=== PATIENT | female | born 1935 | race Caucasian/White ===

== ENCOUNTER 2016-12-22 03:53 | Inpatient (IN) | payer MEDICARE, OTHER ==
[~2016-12-22] VITALS: Ht 162.6 cm; Wt 59.0 kg
[~2016-12-22 03:53] MED LIST: AMLODIPINE BESY10 MG PO; ASPIRIN EC81 MG PO; CENTRUM SILVER1 EAC3 PO; COMBIVENT RESPIM4 GM INH; DOXYCYCLINE HYC50 MG PO; ELIQUIS2.5 MG PO; FLAX OIL1000 MG PO; FLUTICASONE PRO16 GM NS; HYDROCHLOROTH12.5 M1 PO; HYDROCHLOROTH12.5 MG PO; KENALOG-1010 MG/ML IA; KLOR-CON M2020 MEQ PO; LIPITOR10 MG PO; LISINOPRIL10 MG PO; LISINOPRIL20 MG PO; LOPRESSOR100 MG PO; LOVASTATIN20 MG PO; MAG-OXIDE400 MG PO; MINOXIDIL2.5 MG PO; NORVASC10 MG PO; PREDNISONE20 MG PO; TORSEMIDE10 MG PO; VENLAFAXINE H37.5 MG PO; VENLAFAXINE HCL75 M1 PO; ZESTRIL20 MG PO; ZOLPIDEM TARTRA10 MG PO
[2016-12-22] MEDS ORDERED: DIGOXIN250 MCG PO (04:12)
[2016-12-22] MEDS ORDERED: LISINOPRIL10 MG PO (04:14)
[2016-12-22] MEDS ORDERED: METOPROLOL TART50 MG PO (04:17)
[2016-12-22] MEDS ORDERED: MINOXIDIL2.5 MG PO (04:19)
--- NOTE | 2016-12-22 06:41 | NUR ---
PT ARRIVED TO FLOOR VIA STRETCHER, WAS ABLE TO AMBULATE TO SCALE FOR WEIGHT AND THEN TO BED. ALERT/ORIENTED. REPORTS 7/10 HEADACHE PAIN WHICH SHE STATES IS TOLERABLE AT THIS TIME. LUNGS ARE DIMINISHED IN BASES, 4L VIA NC IN PLACE, PULSE OX PLACED. HR IRREGULAR, TELE #4. BOWEL TONES ACTIVE, NO NAUSEA. SKIN INTACT, NO EDEMA PRESENT. IV SL, PATENT. PT UP TO BSC, VOIDED AND THEN RETURNED TO BED. DR. WEIR IN TO SEE PT AT THIS TIME. WILL CONTINUE TO MONITOR.
--- NOTE | 2016-12-22 07:18 | NUR ---
BEDSIDE REPORT RECEIVED FROM BAMBI QUEZADA. PT SLEEPING, SPO2 95%, HR 104. WILL CONTINUE TO MONITOR.
--- NOTE | 2016-12-22 08:20 | NUR ---
CHECKED ON PT. ORDERED PT BREAKFAST, BROUGHT PT ENSURE DRINK. BAMBI ASH ADMINISTERED PRN MORPHINE IV FOR 5/10 PAIN, HEADACHE REPORTED BY PT. PT HAS CALL LIGHT IN REACH.
--- NOTE | 2016-12-22 09:10 | NUR ---
PT ASSESSMENT COMPLETE. PT LUNGS CLEAR THROUGHOUT ALL LOBES. NO EDEMA NOTED. PT SPO2 98% AT THIS TIME ON 4L O2 BY NC. PT WAS ASSISTED TO COMMODE TO VOID, SPO2 FELL TO 90%, PT STATED SHE WAS SOB ON EXERTION. PT VOIDING WELL, HAD BM THIS MORNING. HR IRREGULAR IN THE 90S. PT LYING IN BED AWAKE, CALL LIGHT IN REACH. WILL CONTINUE TO MONITOR.
[2016-12-22] MEDS ORDERED: VENLAFAXINE HC150 MG PO (09:25)
--- NOTE | 2016-12-22 10:54 | NUR ---
CHECKED ON PT, PT SLEEPING SPO2 98%. HR 88. WILL CONTINUE TO MONITOR.
--- NOTE | 2016-12-22 12:02 | NUR ---
CHECKED ON PT. PT SLEEPING SPO2 95%, HR IN THE HIGH 80S, LOW 90S, IRREGULAR ON MONITOR.
--- NOTE | 2016-12-22 12:35 | NUR ---
PT STATES PAIN IS 7/10, HEADACHE. ADMINISTERED 2MG MORPHINE SULFATE IV. PT SON IN ROOM, BROUGHT SON COFFEE. PT STATES SHE DOES NOT HAVE AN APPETITE, OFFERED ENSURE DRINK, PT REFUSED. PT SANDWICH PLACED IN FRIDGE FOR LATER. CALL LIGHT W PT. PT CONTINUES TO BE ON 4L NC, SATURATING AT 96%.
--- NOTE | 2016-12-22 14:14 | NUR ---
PT AWAKE IN BED, ON 4L O2 BY NC. PT DENIES NAUSEA AT THIS TIME. PT STATES SHE IS HAVING NO PAIN AT THIS TIME. PT SON AUBREE AT BEDSIDE. BROUGHT PT SOME CRACKERS TO SNACK ON, STATES SHE HAS NO APPETITE, HAS ENSURE DRINK AT BEDSIDE. CALL LIGHT IN REACH.
--- NOTE | 2016-12-22 15:17 | NUR ---
PT AFTERNOON ASSESSMENT COMPLETE. PT'S LUNGS CLEAR THROUGHOUT ALL LOBES. PT STATES SHE HAS STILL BEEN SOB WITH EXACERBATION, WALKING TO COMMODE. PT SATURATING AT 96% ON 4L NC. PT BOWEL TONES ACTIVE X 4, PT DENIES NAUSEA. PT STATES PAIN IS 0/10 AT THIS ITME. CALL LIGHT IN REACH. PT SON IN ROOM, WILL CONTINUE TO MONITOR.
--- NOTE | 2016-12-22 15:30 | NUR ---
PT'S DAUGHTER IN LAW BROUGHT IN PT'S MINOXIDIL. PHARMACY PHONED, PICKED UP PRESCRIPTION TO VERIFY.
--- NOTE | 2016-12-22 16:02 | EKG ---
[facility] [address] [place] [address] Signed Atrial fibrillation with rapid ventricular response Rightward axis ST \T\ T wave abnormality, consider inferolateral ischemia Abnormal ECG When compared with ECG of 01-JAN-2016 09:42, ST now depressed in Inferior leads ST now depressed in Lateral leads T wave inversion more evident in Inferior leads Nonspecific T wave abnormality no longer evident in Lateral leads Confirmed by GHADA WEIR MD ([id number]) on 12/22/2016 4:02:30 PM Electronically Signed By: GHADA WEIR MD 12/22/16 1602 PATIENT NAME: TOD COWART Electrocardiogram DATE OF : 39 PHYSICIAN: GHADA WEIR MD REPORT #: [id number] REPORT IS CONFIDENTIAL AND NOT TO BE RELEASED WITHOUT AUTHORIZATION
--- NOTE | 2016-12-22 17:40 | NUR ---
CHECKED ON PT. PT AWAKE, ALERT LYING IN BED. SPO2 96% ON 4L NC. FAMILY IN ROOM. PT DENIES PAIN AT THIS TIME. PT HAS NO REQUESTS. CHOCOLATE ENSURE ON TABLE FOR DINNER. PT GIVEN CALL LIGHT. NO ADDITIONAL REQUESTS AT THIS TIME. OFFERED FAMILY COFFEE, DRINKS.
--- NOTE | 2016-12-22 18:43 | NUR ---
PT RECEIVED MORPINE IV X 2 THIS SHIFT FOR 07/06 AND 09/05 REPORTED PAIN, HEADACHE. PT HAS BEEN DROWSY THROUGHOUT SHIFT, NAPPING OFF AND ON. PT ON 4L O2 BY NC, SATURATING 94-97% THROUGHOUT SHIFT, ON CONINUOUS PULSE OX. PT AMBULATES TO THE COMMODE WITH SBA, FAMILY IN ROOM ASSISTING THROUGHOUT DAY, PT REPORTS SOB WITH EXERTION/AMBULATION. PT HAS HAD POOR APPETITE, DRINKING ENSURE THROUGHOUT DAY.
--- NOTE | 2016-12-22 19:20 | NUR ---
SHIFT REPORT RECIEVED. PATIENT RESTING IN BED. EATING SOME FRUIT. DENIES NAUSEA. FAMILY IN ROOM. NO NEEDS AT THIS TIME. CALL LIGHT IN REACH.
--- NOTE | 2016-12-22 20:55 | NUR ---
EVEING MEDS GIVEN PER ORDER. PATIENT ASSESSMENT COMPLETE. PATIENT RESTING IN BED. FAMILY HAS GONE HOME. PATIENT AAOX3. DENIES PAIN AND NAUSEA. BREATHING IS NONLABORED BUT SHALLOW. PULSE OX, O2 94% ON 3L NC. LUNG SOUNDS ARE CLEAR IN UPPER LOBES BILATERALLY, DIMINISHED AND COARSE IN LOWER LOBES BILATERALLY. ABD IS SOFT AND NONTENDER, BOWEL SOUNDS ACTIVE. CMS INTACT. PATIENT IS ON TELE, WHICH SHOWS AN IRREGULAR RHYTHM IN THE 70'S. PATIENT GOT UP WITH SBA TO THE C. PATIENT TOLERATED ACTIVITY, BUT BECAME SOB UPPON TRANSFERING BACK TO THE BED. PATIENT DENIES ANY FURTHER NEEDS. CALL LIGHT IN REACH.
--- NOTE | 2016-12-22 21:25 | NUR ---
NOTIFIED DR. WEIR THAT 1 TAB OF LISINOPRIL WAS FOUND IN PATIENT'S BED, PRESUMABLY FROM THIS MORNING. IRIS WAS COMPLETED FOR THE MISSED MEDICATION. NO NEW ORDERS OBTAINED AT THIS TIME.
--- NOTE | 2016-12-22 23:05 | NUR ---
PATIENT RESTING. EYES CLOSED. PULSE OX, O2 92% ON 3L NC. TELE, HR 70.
--- NOTE | 2016-12-23 00:30 | NUR ---
PATIENT HAVING COUGHING EPISODES. REQUESTED A BREATHING TREATMENT, NONE ARE ORDERED. PRN MORPHINE GIVEN FOR SOB. PATIENT UP TO THE BSC AND BACK INTO BED. TITRATED O2 UP TO 4L TO MAINTAIN O2 >88%. AFTER PATIENT RESTED IN BED FOR 5MIN WITHOUT COUGHING HER O2 WAS 96% ON THE 4L NC. TITRATED BACK DOWN TO 3L NC. 5MINS LATER O2 IS 92%. WILL CONTINUE TO MONITOR.
--- NOTE | 2016-12-23 02:23 | NUR ---
COMMUNITY ADMINISTRATOR COLLECTED VS, WNL. NO NEEDS AT THIS TIME. CALL LIGHT IN REACH.
--- NOTE | 2016-12-23 03:24 | NUR ---
PATIENT RESTING IN BED. STATES HER COUGH AND EASE OF BREATHING HAS IMPORVED. PULSE OX, O2 WAS 99% ON 3L NC. TITRATED TO 2L NC. WILL CONTINUE TO MONITOR.
--- NOTE | 2016-12-23 06:02 | NUR ---
PATIENT RESTED WELL THROUGHOUT THE NIGHT. AROUND MIDNIGHT THE PATIENT HAD SOME COUGHING EPISODES THAT LEFT HER SOB. PRN MORPHINE PROVIDED RELIEF AND PATIENT WAS ABLE TO REST. TITRATED O2 DOWN TO 2L NC. PULSE OX O2 90-95%. PATIENT O2 DROPS TO LOW 80'S WITH ANY ACTIVITY. PATIENT USED BSC DUE TO ACTIVITY INTOLERANCE. PATIENT HAS NOT REPORTED PAIN OR NAUSEA.
--- NOTE | 2016-12-23 06:20 | NUR ---
PATIENT UP PERFORMING AM CARE. EULOGIO WINKLER ASSISTING.
--- NOTE | 2016-12-23 07:25 | NUR ---
BEDSIDE REPORT RECEIVED FROM BAMBI ARCHULETA. PT AWAKE IN BED, FAMILY AT BEDSIDE. PT 94% ON 2L NC. PT REQUESTED DECAF COFFEE, GAVE MENU TO ORDER BREAKFAST, PT STATES SHE IS HUNGRY. BROUGHT FAMILY COFFEE AND WATER. PT HAS CALL LIGHT IN REACH. WILL CONTINUE TO MONITOR.
--- NOTE | 2016-12-23 09:30 | NUR ---
PT MORNING ASSESSMENT COMPLETE. PT RECEIVED PRN NEBULIZER TREATMENT FROM RT KB. PT STATES SHE FEELS BETTER AFTER TREATMENT, SPO2 92% ON 2L NC. PT HAS SUCTION AT BEDSIDE, STATING COUGHING UP BROWN SPUTUM. WHEEZES NOTED THROUGHOUT ALL LUNG LOBES, IMPROVEMENT NOTED AFTER PRN BREATHING TREATMENT. PT CONTINUES TO BE TACHYPNIC, AT RR 28. PT SOB WITH SWALLOWING PILLS, SAT 88%. NO EDEMA NOTED. CSM INTACT. PT REQUESTED SHERBERT ICE CREAM. WAS ABLE TO EAT 50% OF BREAKFAST. PT SON IN ROOM. CALL LIGHT IN REACH.
--- NOTE | 2016-12-23 09:38 | NUR ---
MINOXIDIL DOSAGE VERIFIED WITH PATIENT PCP DR. MATA. PATIENT DOSAGE HAD BEEN INCREASED TO 2.5 MG PO TO CONTROL BP. DR. WEIR PROVIDED VERBAL ORDER TO INCREASE MEDICATION, UPDATED PHARMACY AND SPOKE WITH PHARMACIST [place]. CHART NOTES FAXED OVER FROM [facility], IN CHART.
--- NOTE | 2016-12-23 10:40 | NUR ---
PHYSICAL THERAPY IN TO SEE PT. PT ABLE TO AMBULATED ONE SIDE OF MS HALLWAY, COMPLAINED OF LEG DISCOMFORT WITH AMBULATION, PT DENIES SOB. PT BACK TO ROOM WORKING WITH DIVYA, 93% ON 2L NC. PT HAS CALL LIGHT. BROUGHT FRESH ICE WATER.
--- NOTE | 2016-12-23 12:40 | NUR ---
PATIENT CALLED REQUESTING MORPHINE, ADMINISTERED 2MG IV. RATES PAIN 6/10 ON PAIN SCALE. PATIENT UP TO BATHROOM FIRST, VOIDED 300 ML OF URINE. ATE WELL AT LUNCH, STATED " I THOUHGT THE SOUP WAS TOO SALTY FOR ME". NOW BACK IN BED. NOTED SOME SOB WITH EXERTION SATURATION WITH ACTIVITY 88% 2L NC.
--- NOTE | 2016-12-23 12:50 | NUR ---
CHECKED ON PT. BAMBI WINKLER ADMINISTERED PRN MORPHINE, PT CONTINUES TO COMPLAIN OF HEADACHE PAIN. ADMINISTERED SCHEDULED LASIX. PT HAS NO ADDITIONAL REQUESTS. CALL LIGHT IN REACH. SPO2 93% ON 2L NC.
--- NOTE | 2016-12-23 14:58 | NUR ---
PT AFTERNOON ASSESSMENT COMPLETE. LUNGS CLEAR THROUGHOUT, FINE CRACKLES NOTED IN RLQ. NO EDEMA NOTED. CSM INTACT UPPER AND LOWER. RIGHT EYE RED REMAINS RED DUE TO BROKEN BLOOD VESSELS FROM COUGHING. PT O2 TITRATED TO 1L, PT SATURATING AT 95% ON 1L. PT USED INCENTIVE SPIROMETER X 10 WITH 1000 ML BEST EFFORT. PT ORDERED DINNER AND BREAKFAST FOR TOMORROW. PT HAS NO ADDITIONAL REQUESTS. WILL CONTINUE TO MONITOR. CALL LIGHT IN REACH.
--- NOTE | 2016-12-23 16:49 | NUR ---
PT UP TO CHAIR, LEGS ELEVATED. SPO2 95% ON 1L BY NC. PT REPORTS 7/10 HEADACHE. ADMINISTERED 2MG MORPHINE IV PRN. PT HAS PERSONAL ITEMS IN REACH, SUCTION AND CALL LIGHT NEXT TO PT. PT HAS NOT BEEN COUGHING THIS AFTERNOON. WILL CONTINUE TO MONITOR.
--- NOTE | 2016-12-23 18:20 | NUR ---
PT TITRATED TO 1L O2 BY ME TODAY, BY ME TODAY, TOLERATED WELL SATURATING AT 95-96% THROUGHOUT SHIFT. PT WALKED WITH PHYSICAL THERAPY, DENIED SOB. PT CONTINUES TO COMPLAIN OF SINUS PRESSURE/HEADACHE THROUGHOUT SHIFT, ADMINISTERED IV MORPHINE PRN X 2 THIS SHIFT. PT WAS UP TO CHAIR FOR DINNER, SPENT MOST OF DAY IN BED RESTING. PT CONTINUES TO HAVE DECREASED APPETITE, EATING 50% OF BREAKFAST, LUNCH, AND MIN. AMT OF DINNER.
--- NOTE | 2016-12-23 19:25 | NUR ---
REPORT RECVD FROM HELEN LACY. IN TO SEE PT PT AWAKE, FAMILY AT BEDSIDE. PULSE OX IN PLACE, PT CURRENTLY ON O2 @ 1L. PT CURRENTLY ON TELE #4. PT'S DAUGHTER ASKING WHEN DR. ZUNIGA WILL BE IN TO SEE PT IN THE AM, DAUGHTER WOULD LIKE TO BE PRESENT. ADVISED DAUGHTER THAT DR. ZUNIGA WILL BE IN TO SEE PT IN THE AM AND ADVISED PT TO BE HERE AROUND 7 AM THOUGH A SPECIFIC TIME CAN NOT BE GIVEN. NO FURTHER NEEDS AT THIS TIME. CALL LIGHT IN REACH.
--- NOTE | 2016-12-23 23:30 | NUR ---
IN TO CHECK ON PT, PULSE OX INDICATING LOW O2 SAT PER MASS COMMUNICATIONS INSTRUCTOR. O2 CURRENTLY AT 88%, NC OUT OF NOSE. PT REQUEST TO WEAR MASK THE NC CAUSES HER TO ITCH HER NOSE DISLODGING HER O2. MASK PLACED, O2 INCREASED TO 2L. NO FURTHER NEEDS AT THIS TIME. CALL LIGHT IN REACH.
--- NOTE | 2016-12-24 01:15 | NUR ---
IN TO CHECK ON PT, PT APPEARS TO BE SLEEPING. RR EVEN AND UNLABORED. O2 MASK IN PLACE, PULSE OX IN PLACE. O2 95% ON 2L. NO APPARENT DISTRESS NOTED. CALL LIGHT IN PLACE.
--- NOTE | 2016-12-24 03:25 | NUR ---
IN TO CHECK ON PT, PT AWAKE. O2 OFF. PER PULSE OX O2 @ 88% ON RA. MASK APPLIED PER PT REQUEST. NO FURTHER NEEDS AT THIS TIME. CALL LIGHT IN REACH.
--- NOTE | 2016-12-24 03:43 | NUR ---
PATIENT CALLED TO USE THE BATHROOM. ASSISTED TO THE BEDSIDE COMMODE. PATIENT IS NACK TO BED. CALL LIGHT IS WITHIN REACH.
--- NOTE | 2016-12-24 05:49 | NUR ---
PT HAS HAD UNEVENTFUL SHIFT, RESTED WELL. PT SATURATING WELL, 93-95% ON 1L. DENIES SOB OR PAIN. UP WITH MINIMAL ASSIST TO BATHROOM. PT ON CARDIAC DIET, DECREASED APPETITE. TELE DC'D DURING SHIFT.
--- NOTE | 2016-12-24 07:35 | NUR ---
REPORT RECEIVED FROM BAMBI CHAU. PT ASLEEP WITH OXY MASK AND PULSE OX ON.
--- NOTE | 2016-12-24 09:47 | NUR ---
PT IS SITTING UP IN BED FINISHING UP HER ENSURE. PT ASKED IF SHE COULD GO FOR A WALK, WILL CHECK WITH NURSE.
--- NOTE | 2016-12-24 09:57 | NUR ---
PT STATES SHE HAS A SINUS HEADACHE AND TYLENOL HAS NOT WORKED IN THE PAST. ADMINISTERED THE TYLENOL AND PSEUDOPHED. DAUGHTER IN ROOM. THEY WANT TO TRY WALKING IN A BIT. CHILD AND FAMILY COUNSELOR OBTAINING WALKER FOR FAMILY DAUGHTER STATES SHE WOULD FEEL MORE COMFORTABLE WITH IT.
--- NOTE | 2016-12-24 11:48 | NUR ---
PT UP WALKING WITH PHYS. THER. DAUGHTER WITH HER. APPEARS TO BE TOLERATING WELL.
--- NOTE | 2016-12-24 13:27 | NUR ---
ADMINISTERED TYLENOL FOR 7\10 HEADACHE AND LASIX. PT STATES AT HOME SHE JUST SUFFERS BECAUSE NOTHING WORKS. DENIES FURTHER CONCERNS.
--- NOTE | 2016-12-24 16:51 | NUR ---
TALKED TO DAUGHTER IN LAW IN [place] REGARDING HER CONCERNS. SHE SUSPECTS THE PT IS SLIGHTLY DEPRESSED. LOST HER A FEW YEARS AGO AND HAS NOT DEALT WITH IT WELL. SLEEPS MORE THAN SHE SHOULD. WILL PASS ON TO DR ZUNIGA. PT HAD BM AND AMBULATED TO RESTROOM WO DIFF. . WILL WALK AFTER DINNER.
--- NOTE | 2016-12-24 18:04 | NUR ---
PT RESTED MOST OF DAY. WALKED WITH PHYS. THER. X2. TOLERATED WELL ALTHOUGH SOB. GIVEN TYLENOL AND SUDAFED FOR SINUS CONGESTION AND PAIN. DAILY WEIGHT. SBA. 1LNC AT REST.
--- NOTE | 2016-12-24 19:20 | NUR ---
REPORT RCVD FROM FRANCIS LACY. PT IN BED VISITING WITH FAMILY. PT DENIES PAIN AT THIS TIME. NO FURTHER NEEDS AT THIS TIME. CALL LIGHT IN REACH.
--- NOTE | 2016-12-24 20:45 | NUR ---
IN TO SEE PT, PT RESTING IN BED. AWAKEN EASILY TO VOICE. PM MEDICATIONS GIVEN. DENIES PAIN OR SOB. PT ASSIST UP TO BATHROOM WITH STANDBY ASSIST AND FWW, TOLERATED WELL. PT ASSISTED BACK TO BED. O2 @ 1L PER NC IN PLACE. CONTINOUS PULSE OX ON. NO FURTHER NEEDS AT THIS TIME, CALL LIGHT IN PLACE.
--- NOTE | 2016-12-24 22:15 | NUR ---
IN TO CHECK ON PT, PT APPEARS TO BE SLEEPING. O2 VIA NC AND PULSE OX IN PLACE. RR EVEN AND UNLABORED. NO APPARENT DISTRESS NOTED. CALL LIGHT IN REACH.
--- NOTE | 2016-12-25 00:06 | NUR ---
PATIENT CALLED TO USE THE BATHROOM. PATIENT IS BACK IN BED. CALL LIGHT IS WITHIN REACH.
--- NOTE | 2016-12-25 02:15 | NUR ---
PT CALLED, UP TO BATHROOM WITH STANBY ASSIST. PT ASSISTED BACK TO BED. PT REQUESTING "SOMETHING FOR SLEEP." PT ADVISED THAT NO MEDICATIONS HAVE BEEN ORDERED FOR SLEEP AND THAT IT TOO LATE TO ADMISISTER MEDICATION AT THIS TIME. ADVISED THAT IF SLEEP AID WOULD BE GIVEN AT THIS TIME IT MAY CAUSE PT TO BE DROWSY OR SLEEP DURING THE DAY. PT STATES "OH WELL, I WILL TRY TO GO BACK TO SLEEP." NO FURTHER NEEDS AT THIS TIME. CALL LIGHT IN REACH.
--- NOTE | 2016-12-25 04:30 | NUR ---
IN TO CHECK ON PT, PT APPEARS TO BE SLEEPING. RR EVEN AND UNLABORED. O2 AND PULSE OX IN PLACE. NO APPARENT DISTRESS NOTED. CALL LIGHT IN REACH.
--- NOTE | 2016-12-25 06:01 | NUR ---
PT CALL, ASSISTED UP TO BATHROOM. STANDBY ASSIST WITH FWW. PT TOLERATED WELL. ASSISTED BACK TO BED. PT STATES "I DIDN'T SLEEP AT ALL LAST NIGHT, MAYBE 2 HOURS." PT STATES SHE IS GOING TO TRY TO GO BACK TO SLEEP. NO FURTHER NEEDS AT THIS TIME. CALL LIGHT IN REACH.
--- NOTE | 2016-12-25 06:04 | NUR ---
PT HAS HAD UNEVENTFUL SHIFT. PT STATES SHE DID NOT SLEEP WELL. O2 @ 1L, PULSE OX IN PLACE. PT UP STANDBY ASSIST WITH FWW. VOIDING QS. IV SL, FLUSHES WELL. NO C/O PAIN DURING SHIFT.
--- NOTE | 2016-12-25 07:25 | NUR ---
REPORT RECIEVED FROM BAMBI CHAU. PT STATES SHE DID NOT SLEEP MUCH THROUGH OUT SHIFT. APPEARS TO BE RESTING WITH EYES CLOSED.
--- NOTE | 2016-12-25 08:14 | NUR ---
PATIENT WAS LAYING IN BED, WE TALKED ABOUT HER EATING BREAKFAST AND THEN WE WILL GET HER IN THE SHOWER TODAY AND ALSO WALK 4 TIMES TODAY!
--- NOTE | 2016-12-25 09:55 | NUR ---
PT SHOWERED AND WALKED IN HALLWAY. TWO LAPS AROUND THE UNIT. TOLERATED WELL. TIRED BUT BASELINE TIRED FOR HER. TIPSY BUT FWW WAS A HINDERANCE WILL SEE ABOUT A CANE FOR BALANCE. PT TALKED ABOUT AND FAMILY AND SEEMS DEPRESSED.
--- NOTE | 2016-12-25 11:42 | NUR ---
PT SITTING UP IN CHAIR TRYING TO EAT LUNCH. STATES THE DRAINAGE FROM HER SINUS' IS MAKING HER NAUSEOUS. TOOK AB AND ABLE TO EAT A COUPLE BITES OF SALAD.
--- NOTE | 2016-12-25 17:25 | NUR ---
PT WALKED IN [place] SEVERAL TIMES. STATES SHE IS TIRED. SHOWERED. WORKED WITH PHYS. THER. SLIGHTLY UNSTEADY WHEN AMBULATING.
--- NOTE | 2016-12-25 19:10 | NUR ---
REPORT RECVD FROM FRANCIS LACY. IN TO SEE PT, PT LAYING IN BED RESTING. O2 @ 1L, PULSE OX IN PLACE. PT SL. NO FURTHER NEEDS AT THIS TIME. CALL LIGHT IN REACH.
--- NOTE | 2016-12-25 20:15 | NUR ---
IN TO SEE PT, PT IN BED WATCHING TV. ASSESSMENT COMPLETE AND PM MEDICATIONS GIVEN. PT STATES "I AM HOPING TO SLEEP BETTER TONIGHT." O2 @ 1L PER NC, PULSE OX IN PLACE. SL, FLUSHES WELL. EXPIRATORY WHEEZES HEARD THROUGH OUT LUNGS. NO FURTHER NEEDS AT THIS TIME. CALL LIGHT IN REACH.
--- NOTE | 2016-12-25 23:20 | NUR ---
IN TO CHECK ON PT, PT APPEARS TO BE SLEEPING. RR EVEN AND UNLABORED.O2 AND PULSE OX IN PLACE. NO APPARENT DISTRESS NOTED. CALL LIGHT IN REACH.
--- NOTE | 2016-12-26 00:50 | NUR ---
IN TO CHECK ON PT, PT APPEARS TO BE SLEEPING, RR EVEN AND UNLABORED. O2 PER NC IN PLACE AND PULSE OX. NO APPARENT DISTRESS NOTED. CALL LIGHT IN REACH.
--- NOTE | 2016-12-26 01:24 | NUR ---
PULSE OX ALARM, IN TO CHECK ON PT. PT AWAKE SITTING AT BEDSIDE, SHE STATES " I AM LOOKING FOR THAT THING TO PUT ON MY SKIN TO MAKE IT FEEL BETTER." WHEN ASKED IF IT WAS A CREAM, PT STATES "NO IT IS A MACHINE." PT APPEARS TO BE CONFUSED, REORIENTED QUICKLY. PT UP TO BATHROOM WITH STANDBY ASSIST AND CANE. LIQUID BM NOTED. PT BACK TO BED, FRESH ICE WATER GIVEN. NO FURTHER NEEDS AT THIS TIME. CALL LIGHT IN REACH.
--- NOTE | 2016-12-26 04:07 | NUR ---
IN TO CHECK ON PT, PT APPEARS TO BE SLEEPING. RR EVEN AND UNLABORED. O2 VIA MASK AND PULSE OX IN PLACE. O2 92%. NO APPARENT DISTRESS NOTED. CALL LIGHT IN REACH.
--- NOTE | 2016-12-26 05:15 | NUR ---
PT HAS RESTED INTERMITTENTLY DURING SHIFT. UP TO BATHROOM WITH STANDBY ASSIST AND CANE. PT SL. LIQUID BM NOTED DURING SHIFT. O2 @ 1L IN PLACE WITH PULSE OX. POSSIBLE D/C TODAY.
--- NOTE | 2016-12-26 08:00 | NUR ---
PATIENT IS REFUSING A SHOWER FOR TODAY. PATIENT'S NURSE, JESSE, WAS NOTIFIED.
--- NOTE | 2016-12-26 08:20 | NUR ---
PT SITTING UP IN BED EATING BREAKFAST NOW. TOOK SCHEDULED MEDS ORDERED. SWITCHED FROM OXYMASK TO NC ON 1L. O2 SATS 94% NOW. NO COMPLAINTS THIS MORNING. BP SLIGHTLY ELEVATED. WILL MONITOR. WEIGHT 130# THIS MORNING.
[2016-12-26] MEDS ORDERED: AUGMENTIN 500-1 EACH PO (11:58)
[2016-12-26] MEDS ORDERED: TORSEMIDE20 MG PO (11:59)
[2016-12-26] MEDS ORDERED: FLUTICASONE PRO16 GM NAS (12:00)
--- NOTE | 2016-12-26 12:30 | NUR ---
PT SLIGHTLY NAUSEATED. APPETITE POOR. DISCHARGE ORDER IN. AUGMENTIN AND DEMADEX GIVEN TO PATIENT. WILL REMOVE IV AND PROVIDE PAPERWORK TO PATIENT AFTER RESP THERAPIST QUALIFIES PATIENT FOR HOME O2.
--- NOTE | 2016-12-26 14:02 | NUR ---
FAXED CHART NOTES, INCLUDING FACESHEET, ORDER, RT HOME O2 QUALIFIER, H AND P, DC SUMMARY TO IN HOME MED DISCUSSED WITH PT EARLIER TODAY. CALLED IN HOME MED AND SPOKE WITH SEGUNDO, SHE STATED TO LET HER KNOW WHEN THE PT DC'D.
== END 2016-12-26 14:10 | disposition home or self-care (01) | DRG 291 ==
LOC: ED 03:53 → MS 05:44
PROVIDERS: ADMIT Internal Medicine
DX: I11.0 Hypertensive heart disease with heart failure (principal); J18.1 Lobar pneumonia, unspecified organism; J96.01 Acute respiratory failure with hypoxia; I50.33 Acute on chronic diastolic (congestive) heart failure; I89.0 Lymphedema, not elsewhere classified; I48.2 Chronic atrial fibrillation; J44.9 Chronic obstructive pulmonary disease, unspecified; J01.41 Acute recurrent pansinusitis; F39 Unspecified mood [affective] disorder; G47.33 Obstructive sleep apnea (adult) (pediatric); Z79.899 Other long term (current) drug therapy; Z87.891 Personal history of nicotine dependence; Z79.01 Long term (current) use of anticoagulants
CPT/HCPCS: 36415; 71010; 71260; 80048; 80053; 80162; 83880; 84484; 85025; 93005; 93010; 94640; 94762; 97110; 97116; 97162; 99406; J1160; J2270; Q9967

== ENCOUNTER 2017-01-17 08:49 | Emergency (ER) | payer MEDICARE, OTHER ==
[~2017-01-17] VITALS: Ht 162.6 cm; Wt 59.0 kg
[~2017-01-17 08:49] MED LIST changes: +AUGMENTIN 500-1 EACH PO; +DIGOXIN250 MCG PO; +FLUTICASONE PRO16 GM NAS; +METOPROLOL TART50 MG PO; +TORSEMIDE20 MG PO; +VENLAFAXINE HC150 MG PO
--- NOTE | 2017-01-17 15:55 | EKG ---
[facility] [address] [place], [place] [address] Signed Atrial fibrillation with rapid ventricular response Rightward axis Marked ST abnormality, possible inferior subendocardial injury Abnormal ECG When compared with ECG of 22-DEC-2016 04:02, ST more depressed in Inferior leads Confirmed by GHADA WEIR MD ([id number]) on 01/17/2017 3:54:52 PM Electronically Signed By: GHADA WEIR MD 01/17/17 1555 PATIENT NAME: TOD COWART Electrocardiogram DATE OF : 39 PHYSICIAN: GHADA WEIR MD REPORT #: [id number] REPORT IS CONFIDENTIAL AND NOT TO BE RELEASED WITHOUT AUTHORIZATION
== END 2017-01-17 17:55 | disposition short-term general hospital (02) ==
LOC: ED 08:49
PROC: 0T9B70Z Drainage of Bladder with Drainage Device, Via Natural or Artificial Opening (ICD-10-PCS; principal; 2017-01-17)
PROC: 039 Upper Arteries, Drainage (ICD-10-PCS; principal; 2017-01-17)
DX: I48.91 Unspecified atrial fibrillation (principal); I11.0 Hypertensive heart disease with heart failure; I50.9 Heart failure, unspecified; J44.9 Chronic obstructive pulmonary disease, unspecified; I73.9 Peripheral vascular disease, unspecified; Z79.01 Long term (current) use of anticoagulants; Z88.8 Allergy status to other drugs, medicaments and biological substances; Z88.6 Allergy status to analgesic agent; Z79.899 Other long term (current) drug therapy
CPT/HCPCS: 36600; 51702; 71010; 80053; 80162; 82803; 83880; 84484; 85025; 93005; 93010; 94660; 96374; 96375; 96376; 99285

== ENCOUNTER 2017-04-13 15:13 | Emergency (ER) | payer MEDICARE, OTHER ==
[~2017-04-13] VITALS: Ht 162.6 cm; Wt 59.0 kg
[2017-04-13] MEDS ORDERED: DIGOX250 MCG PO (15:31)
[2017-04-13] MEDS ORDERED: VENTOLIN HFA18 GM INH (15:34)
[2017-04-13] MEDS ORDERED: BISOPROLOL FUMA10 MG PO (15:35)
[2017-04-13] MEDS ORDERED: NORVASC10 MG PO (15:35)
[2017-04-13] MEDS ORDERED: HYDRALAZINE HCL25 MG PO (15:36)
[2017-04-13] MEDS ORDERED: SYMBICORT 16010.2 GM INH (15:36)
[2017-04-13] MEDS ORDERED: XOPENEX0.63 MG/3 INH (15:37)
[2017-04-13] MEDS ORDERED: LOSARTAN POTASS50 MG PO (15:37)
[2017-04-13] MEDS ORDERED: SPIRIVA18 MCG INH (15:38)
[2017-04-13] MEDS ORDERED: ALDACTONE25 MG PO (15:38)
[2017-04-13] MEDS ORDERED: PERCOCET 5-3251 EACH PO (15:39)
--- NOTE | 2017-04-14 07:11 | EKG ---
[facility] [address] [facility] [place] [address] Signed Atrial fibrillation with premature ventricular or aberrantly conducted complexes Right axis deviation ST \T\ T wave abnormality, consider inferolateral ischemia Abnormal ECG When compared with ECG of 17-JAN-2017 08:57, Vent. rate has decreased BY [address] no longer depressed in Inferior leads Confirmed by GHADA WEIR MD ([id number]) on 04/14/2017 7:10:52 AM Electronically Signed By: GHADA WEIR MD 04/14/17 0711 PATIENT NAME: TOD COWART Electrocardiogram DATE OF : 39 PHYSICIAN: GHADA WEIR MD REPORT #: [id number] REPORT IS CONFIDENTIAL AND NOT TO BE RELEASED WITHOUT AUTHORIZATION
== END 2017-04-13 18:56 | disposition home or self-care (01) ==
LOC: ED 15:13
DX: I11.0 Hypertensive heart disease with heart failure (principal); I50.9 Heart failure, unspecified; J44.9 Chronic obstructive pulmonary disease, unspecified; I48.91 Unspecified atrial fibrillation; Z87.891 Personal history of nicotine dependence; Z90.49 Acquired absence of other specified parts of digestive tract; Z88.8 Allergy status to other drugs, medicaments and biological substances; Z88.6 Allergy status to analgesic agent; Z79.899 Other long term (current) drug therapy
CPT/HCPCS: 71046; 80053; 83735; 83880; 84484; 85025; 93005; 93010; 94640; 99284

== ENCOUNTER 2017-07-05 15:31 | Inpatient (IN) | payer MEDICARE, OTHER ==
[~2017-07-05] VITALS: Ht 162.6 cm; Wt 55.0 kg
[~2017-07-05 15:31] MED LIST changes: +ALDACTONE25 MG PO; +BISOPROLOL FUMA10 MG PO; +DIGOX250 MCG PO; +HYDRALAZINE HCL25 MG PO; +LOSARTAN POTASS50 MG PO; +PERCOCET 5-3251 EACH PO; +SPIRIVA18 MCG INH; +SYMBICORT 16010.2 GM INH; +VENTOLIN HFA18 GM INH; +XOPENEX0.63 MG/3 INH
[2017-07-05] MEDS ORDERED: XOPENEX HFA15 GM INH (17:43)
[2017-07-05] MEDS ORDERED: K-TAB ER20 MEQ PO (17:46)
--- NOTE | 2017-07-05 19:00 | NUR ---
BEDSIDE REPORT RECEIVED FROM DAY SHIFT NURSE. PATIENT SITTING AT BEDSIDE EATING SNACK AT THIS TIME. FAMILY AT BEDSIDE. PATIENT DENIES ANY NEEDS AT THIS TIME. CALL LIGHT WITHIN REACH.
--- NOTE | 2017-07-05 20:10 | NUR ---
PATIENT ASSESSMENT COMPLETED. PATIENT COMPLAINS OF A HEADACHE, PRN PAIN MEDICATION GIVEN. RT CALLED TO SET UP CPAP FOR PATIENT. RT AUSCULTATED LUNGS ANS PATIENT OFFERED NEB TREATMENT, PATIENT DENIES AT THIS TIME. PATIENT APPEARS SOB AND LABORED BREATHING, RR 28. OXYGEN SATURATION 88 ON 5L VIA NC. PATIENT STATES SHE IS A MOUTH BREATHER. PATIENT SWITCHED TO 6L VIA OXY MASK, PATIENT OXYGEN SATURATION 90. PATIENT STANDING WEIGHT TAKEN. MEDICATIONS GIVEN PER ORDER. FAMILY AT BEDSIDE. WILL CONTINUE TO MONITOR. HARLEY IN PLACE, DRAINING YELLOW URINE.
--- NOTE | 2017-07-05 21:55 | NUR ---
PATIENT 1PA TO BSC. PATIENT ASSISTED BACK IN BED. PATIENT STATES READY FOR BED, RT CALLED TO FINISH CPAP SET UP. PATIENT SOB, RR 28 AND OXYGEN SATURATION 89 ON 6L VIA OXY MASK. FLOEY IN PLACE, DRAINING YELLOW URINE. PATIENT DENIES ANY NEEDS AT THIS TIME. CALL LIGHT WITHIN REACH.
--- NOTE | 2017-07-05 22:08 | NUR ---
RT IN ROOM WITH PATIENT, SETTING UP CPAP FOR THE NIGHT.
--- NOTE | 2017-07-05 23:08 | NUR ---
PATIENT USED CALL LIGHT TO REQUEST CPAP TAKEN OFF. PATIENT STATES CPAP IS TO LOUD AND IS KEEPING HER AWAKE. RT AND NURSE IN ROOM. 6L OF OXYGEN VIA OXY MASK PLACED ON PATIENT, PATIENT SATURATION 94. CPAP REMAINS AT BEDSIDE. PATIENT DENIES ANY OTHER NEEDS AT THIS TIME. CALL LIGHT WITHIN REACH.
--- NOTE | 2017-07-06 00:43 | NUR ---
PATIENT USED CALL LIGHT TO REQUEST THE ROOM TEMPERATURE TO BE TURNED DOWN. ROOM TEMP TURNED DOWN, PATIENT GIVEN NEW PILLOW FOR COMFORT. PATIENT RATES PAIN 2/10 AND IS TOLERABLE FOR HER. PATIENT IS ON 6L OF OXYGEN VIA OXYMASK, OXYGEN SATURATION 92. HEART RATE 61. PATIENT ON CONTINUOUS PULSE OX. HARLEY IN PLACE, DRAINING YELLOW URINE. PATIENT DENIES ANY OTHER NEEDS AT THIS TIME. CALL LIGHT WITHIN REACH. ASSESSMENT COMPLETED.
--- NOTE | 2017-07-06 01:24 | NUR ---
PATIENT CALLED AND STATED "MY LEGS ARE JUMPING". PATIENT DENIES ANY PAIN IN HER LEGS. PATIENT HAS NO TENDERNESS IN HER LEGS. PATIENT HAS NO WARM SPOTS ON HER LEGS. WARM BLANKETS WRAPPED AROUND PATIENTS LOWER LEGS. NO FURTHER NEEDS NOTED. WILL CONTINUE TO MONITOR, CALL LIGHT IN REACH
--- NOTE | 2017-07-06 03:06 | NUR ---
VITALS AND I&OS DONE AND CHARTED. FRESH ICE WATER GIVEN. BEDSIDE TABLE AND CALL LIGHT WITHIN REACH.
--- NOTE | 2017-07-06 03:59 | NUR ---
PATIENT RESTING IN BED WITH EYES CLOSED. PULSE OX 95 ON 6L VIA OXYMASK. HEART RATE 55. PATIENTS BREATHING EVEN AND UNLABORED. CALL LIGHT WITHIN REACH.
--- NOTE | 2017-07-06 05:30 | NUR ---
PATIENT RATES PAIN 8/10. PATIENT GIVEN PRN PAIN MEDICATION. PATIENT GIVEN SNACK WITH MEDICATIONS. PATIENTS OXYGEN SATURATION 90 ON 6L VIA NC. HEART RATE 68. PATIENT RR 22. ASSESSMENT COMPLETED. DAILY WEIGHT RECORDED. I&Os AND VITALS RECORDED. HARLEY IN PLACE, URINE DRAINING YELLOW AND QS. LAB IN ROOM. WILL CONTINUE TO MONITOR.
--- NOTE | 2017-07-06 07:38 | NUR ---
BEDSIDE REPORT RECEIVED FROM EDVIN. PATIENT AWAKE IN BED A&O. DENIES PAIN. REPORT SOB. PATIENT IS 5L OF O2 VIA OXY MASK. PATIENT HOB WAS ELEVEATED FOR COMFORT. HARLEY IN PLACE AND DRAINING WELL.
--- NOTE | 2017-07-06 07:58 | NUR ---
ANSWERED HER LIGHT SHE WANTED TO CHANGED FROM AN OXY MASK TO NASAL CANNULA. ALSO ASKED HER ABOUT A SHOWER AND SHE SAID DO TO HER OXYGEN BEING SO LOW SHE FELT LIKE SHE DIDN'T HAVE THE ENERGY TO TAKE ONE. SHE IS RIGHT NOW SITTING UP IN HER BED EATING HER BREAKFAST.
[2017-07-06] MEDS ORDERED: ZOLPIDEM TARTRAT5 MG PO (08:54)
--- NOTE | 2017-07-06 08:57 | NUR ---
MED REC COMPLETE WITH DEEDEE REFILL HISTORY AND PATIENT INTERVIEW.
--- NOTE | 2017-07-06 09:40 | NUR ---
PATIENT FOUND IN BED AWAKE, FAMILY AT BEDSIDE. PATIENT REPORT SOME RELIEF FROM HER HEADACHE AFTER TYLENOL EARLIER. SHIFT ASSESSMENT DONE. LUNGS CLEAR DIM IN THE BASES. PATIENT REPORTED SOB, STILL ON 5L OF O2 VIA OXY MASK. HARLEY IN PLACE AND DRAINING WELL. PATIENT DENIES ANY NUMBNESS OR TINGLING. PERIPHERAL PULSE PRESENT AND PALPABLE. DYSPNEA ON EXERTION. MORNING MED ADMINISTERED. IV SITE PATENT AND NO SIGNS OF INFILTRATION. WILL CONTINUE TO MONITOR
--- NOTE | 2017-07-06 10:42 | NUR ---
CHFN Note #1- Patient admitted with acute on chronic HFpEF. SrCR 1.15 Weight 127lb. Reported weight on phone call with pt in Dec 2016 was 130lb. Reports has background knowledge of heart failure process. Denies missed medications, uses 7 day pill box. [facility] used. Has home scales, states is 4 lb different than hospital scales. Educated on how to accurately weigh daily. Has transportation for doctor visits. Declines viewing heart failure video at this time since she is waiting for a phone call. Offered outpatient heart failure discussion after discharge. Education materials given: Daily weight and symptom log, low sodium shopping list.
--- NOTE | 2017-07-06 11:23 | NUR ---
PATIENT RESTING IN BED. REPORT SOB, RT IN ROOM TO EVALUATE PATIENT. FAMILY AT BEDSIDE.
--- NOTE | 2017-07-06 11:53 | NUR ---
PT SITTING UP IN BED O2 ON. VISITOR AT HER SIDE, PT REQUESTED I STAY AND PRAY WITH HER WHICH I DID. WITH A BIG SMILE SHE THANKED ME, AND I EXTENDED A BLESSING TO HER. WILL CONTINUE TO FOLLOW NEEDED
--- NOTE | 2017-07-06 12:34 | NUR ---
PATIENT WAS UP TO CHAIR TO EAT LUNCH. THEN BACK TO BED WITH MINIMAL ASSIST. PATIENT WAS SWITCH BACK TO OXY MASK. PATIENT REPORTED BEING TIRED. RESTING IN BED AT THIS TIME. ALLOW PATIENT TO REST.
--- NOTE | 2017-07-06 13:19 | NUR ---
PT CALLED TO SAY THEY NEEDED HELP GETTING BACK TO BED, PT WAS ON COMMODE. PT STOOD UP AND PIVOTED TOWARDS THE BED AND LAYED DOWN. PT IS NOW RESTING SAFELY WITH CALL LIGHT IN REACH. PT DID NOT NEED ANYTHING ELSE AT THE MOMENT
--- NOTE | 2017-07-06 14:53 | NUR ---
PATIENT CALLED AND REQUESTED PAIN MED FOR HEADACHE THAT SHE RATED 8/10. PATIENT WAS MEDICATED. VS TAKEN. U/O Q/S. PATIENT IS ON 4L OF O2 AT THIS TIME. ALLOWE PATIENT TO REST. WILL CONTINUE TO MONITOR PATIENT.
--- NOTE | 2017-07-06 15:30 | NUR ---
CCU CALLED BECAUSE PATIENT'S HR DROPPED INTO THE 20'S. WENT TO CHECK ON PATIENT. PATIENT NOT FEELING ANY DIFFERENT. HR-63 PALPATED RADIAL, B/P-119/52, MAP-83, SATS-93% ON 4L/OXYMASK, RR-24, TEMP-98.3F. PATIENT'S NURSE JOCELENE INFORMED.
--- NOTE | 2017-07-06 16:00 | EKG ---
[facility] [address] [facility] [place] [address] Signed Atrial fibrillation with premature ventricular or aberrantly conducted complexes Rightward axis ST \T\ T wave abnormality, consider inferolateral ischemia Abnormal ECG When compared with ECG of 13-APR-2017 16:38, No significant change was found Confirmed by GHADA WEIR MD ([id number]) on 07/06/2017 4:00:46 PM Electronically Signed By: GHADA WEIR MD 07/06/17 1600 PATIENT NAME: SOFYATOD POST Electrocardiogram DATE OF : 39 PHYSICIAN: GHADA WEIR MD REPORT #: [id number] REPORT IS CONFIDENTIAL AND NOT TO BE RELEASED WITHOUT AUTHORIZATION
--- NOTE | 2017-07-06 16:18 | NUR ---
PATIENT RESTING IN BED, FRIENDS AND FAMILY IN ROOM VISITING.
--- NOTE | 2017-07-06 18:24 | NUR ---
PATIENT HAD A FAIR DAY. HAD BEEN UP TO CHAIR ONCE TODAY. PATIENT HAD LASIX ONCE TODAY. HARLEY IN PLACE. U/O Q/S. IV SITE PATENT. PATIENT IS S/L. PATIENT IS TITRATE TO 4L OF O2 NOW PER RESPIRATORY THERAPIST. HAD A BM TODAY. PATIENT HAD TYLENOL ONCE TODAY FOR HEADACHE. LUNGS CLEAR. NO PERIPHERAL EDEMA.
--- NOTE | 2017-07-06 19:05 | NUR ---
RECEIVED REPORT FROMDAY SHIFT RN. PT IN BED WITH DAUGHTER AT BEDSIDE. 4L MASK IN PLACE. SATURATIONS AT 92% HEART RATE 64. HARLEY CATH IN PLACE. PT ON TELE #7. CONT PULSE OX IN PALCE. REFRESHED WATER. REPORTS HEADACHE 10/06. PRN PAIN MEDICATION GIVEN. CALL LIGHT WITHIN REACH. REPORTS NO OTHER NEEDS AT THIS TIME.
--- NOTE | 2017-07-06 20:39 | NUR ---
VITALS DONE AND CHARTED. BEDSIDE TABLE AND CALL LIGHT WITHIN REACH. PT SAYS SHE HAS A TERRIBLE HEADACHE. I INFORMED HER RN CAPRICE.
--- NOTE | 2017-07-06 21:00 | NUR ---
PT REPORTS HEADACHE 10/06. TYLENOL GIVEN.
--- NOTE | 2017-07-06 21:30 | NUR ---
PT REPORTS TYLENOL IS NOT HELPING HEADACHE. INFORMED DR WEIR. NEW ORDERS RECIEVED.
--- NOTE | 2017-07-06 23:25 | NUR ---
NOTIFIED DR WEIR OF LOW OUTPUT. NO NEW ORDERS. WILL CONT TO MONITOR AND UPDATE IN AM PER DR WEIR.
--- NOTE | 2017-07-07 01:48 | NUR ---
CALL FROM CCU ABOUT PT HEART RATE DROPPING TO 30'S. CHECKED ON PT. RESPIRATIONS 16. PT RECOVERS QUICKLY FROM JOE EPISODES . STRIPS PRINTED AND PUT IN CHART.
--- NOTE | 2017-07-07 02:25 | NUR ---
VITALS AND I&OS DONE AND CHARTED. BEDSIDE TABLE AND CALL LIGHT WITHIN REACH. PT NEEDS NOTHING ELSE AT THIS TIME.
--- NOTE | 2017-07-07 05:13 | NUR ---
PT SLEPT THROUGHOUT THE NIGHT. HEADACHE 10/06 PAIN @ 2300. NORCO GIVEN. HARLEY IN PLACE. OUTPUT NOT QS. DR WEIR NOTIFIED. REPORT IN THE AM WHEN SHE COMES IN. PT ON 1600 FLUID RESTRICTION. CARDIAC DIET. CRACKLES IN BASES OF LUNGS. B/P SOFTENED OVER NIGHT. LAST ONE 100/42. TITRATED TO 5L VIA MASK FOR DESATURATION WHILE DOING DAILY WEIGHT. CONT PULSE OX IN PLACE. JOE EPISODES THROUGHOUT THE NIGHT GETTING DOWN INTO 30'S. WITH 2.10 SEC PAUSE ON TELE. PT REPCOVERED QUICKLY. WARREN HARLEY THIS AM. TELE #7. SOB WITH ACTIVITY. BSC SBA.
--- NOTE | 2017-07-07 06:39 | NUR ---
I&OS DONE AND CHARTED. BEDSIDE TABLE AND CALL LIGHT WITHIN REACH. EMPTIED GARBAGES. CLEANED UP ROOM. PT NEEDS NOTHING ELSE AT THIS TIME.
--- NOTE | 2017-07-07 07:45 | NUR ---
PATIENT REALXING IN BED, EYES CLOSED. BOARD UPDATED, GARBAGE EMPTIED. THIS PEST TECHNICIAN ORDERED BREAKFAST FOR PATIENT. CALL LIGHT IN REACH, NO OTHER NEEDS
--- NOTE | 2017-07-07 08:07 | NUR ---
SHIFT REPORT RECEIVED FROM CAPRICE. PATIENT APPEARS TO BE SLEEPING AT TIME OF REPORT. PATIENT IS AWAKE NOW. SITTING IN BED EATING BREAKFAST. NO COMPLAINTS. CALL LIGHT IN REACH.
--- NOTE | 2017-07-07 08:10 | NUR ---
SHIFT REPORT RECEIVED FROM FROM CAPRICE. PATIENT RESTING IN BED AWAKE. REPORTS NO PAIN. PATIENT STILL ON 4L OF O2. DENIES SOB. NO DISTRESS NOTED. HARLEY IN PLACE. PATIENT REPORTS RELIEF OF HEADACHE. PATIENT ASSISTED AT BEDSIDE TO EAT BREAKFAST. CALL LIGHT IN REACH.
--- NOTE | 2017-07-07 09:40 | NUR ---
IN TO ROOM. PATIENT IS AWAKE SITTING AT BEDSIDE. SHIFT ASSESSMENT DONE. PATIENT DENIED ANY SOB AT THIS TIME. DR WEIR WAS NOTIFIED ABOUT PATIENT'S LOW BLOOD PRESSURE, ORDER TO HOLD THEM. PATIENT WAS EDUCATED ABOUT WHY THE MEDICATIONS WERE HOLD. LUNGS ARE CLEAR. PATIENT IS ON 4.5L OF 02 VIA OXYMASK. FAMILY AT BEDSIDE.
--- NOTE | 2017-07-07 10:00 | NUR ---
SPOKE WITH PATIENT IN ROOM. DISCUSSED POSSIBLE [facility]W REFERRAL TO FOLLOW HER AT HOME FOR ANY HELP SHE MAY NEED IN TRASITION TO CARING FOR SELF AGAIN. SHE IS VERY OPEN TO THIS IDEA. EXPLAINED THE PROGRAM AND ANSWERED QUESTIONS. DR WEIR IN AND IS IN AGREEMENT TO THIS PLAN. PATIENT IS STILL FEELING SOB ESPECIALLY WITH ACTIVITY. DR WEIR DISCUSSED STARTING PHYSICAL THERAPY TO BUILD SOME TOLERANCE BEFORE HOME.
--- NOTE | 2017-07-07 10:45 | NUR ---
DR WEIR WAS IN ROOM TO EVALUATE PATIENT AND DISCUSS PLAN OF CARE WITH PATIENT AND FAMILY. PLAN TO D/C HARLEY. HARLEY WAS D/C AND PATIENT EDUCATED ABOUT VOIDING AFTERWARD. RESTING IN BED AT THIS TIME.
--- NOTE | 2017-07-07 11:55 | NUR ---
PATIENT IN BED, OXYGEN MASK ON. FAMILY IN ROOM. GARBAGE EMPTIED. CALL LIGHT IN REACH.
--- NOTE | 2017-07-07 13:56 | NUR ---
PATIENT IN BED, EYES CLOSED. OXYGEN MASK ON. VITALS AND I/OS DONE. PATIENT ASKED FOR THE BLINDS TO BE DRAWN FOR BETTER REST. CALL LIGHT INREACH NO OTHER NEEDS
--- NOTE | 2017-07-07 14:05 | NUR ---
PATIENT RESTING IN BED, REPORT NO PAIN OR HEADACHE AT THIS TIME. ATE MOST HER LUNCH. WAS UP TO BEDSIDE COMMODE AND VOIDED (300ML) AFTER HARLEY WAS DC THIS AM. FAMILY IN ROOM AT THIS TIME VISITING
--- NOTE | 2017-07-07 14:05 | NUR ---
PT RESTING IN BED-ALERT, ORIENTED AND SUPPORTED BY HER DAUGHTER BIA AND SON BISMARK. PT APPEARS MORE RESPONSIVE TODAY, INVOLVED IN MORE OF THE CONVERSATION. STATED SHE IS INFORMED AND AGREES WITH COURSE OF TREATMENT. PT REQUESTED PRAYER, WILL FOLLOW NEEDED
--- NOTE | 2017-07-07 15:15 | NUR ---
PATIENT AT EDGE OF BED, PT IN ROOM WITH PATIENT. THIS HAND FINISHER ASSISTED PATIENT BACK TO BED. VISITOR WAITNING OUTSIDE ROOM
--- NOTE | 2017-07-07 15:45 | NUR ---
IN TO ROOM TO CHECK ON PATIENT. PATIENT REPORTS BEING TIRED. DENIES ANY OTHER COMPLAINTS. ALLOW PATIENT TO REST.
--- NOTE | 2017-07-07 17:35 | NUR ---
PATIENT IN BED, DAUGHTER IN RM. VITALS AND I/OS DONE. BAMBI HATCH IN RM. FRESH ICE WATER AND JUICE GIVEN. CALL LIGHT IN REACH
--- NOTE | 2017-07-07 18:28 | NUR ---
PATIENT HAD A FAIR DAY. CHERRI WAS DC THIS AM AND PATIENT VOIDED WELL. PATIENT STILL ON TELE # 7 SR. PATIENT IS 4.5L OF O2 VIA OXYMASK. PATIENT HAD PHYSICAL THERAPY TODAY AND TOLERATED OK DESATED TO LOWER 80"s AND BACK UP TO 91 AFTER A FWE MINUTES. PATIENT REPORTED MILD HEADACHE AT THIS TIME. IV SITE PATENT AND FLUSHED WELL.
--- NOTE | 2017-07-07 20:01 | NUR ---
recieved bedside report from day shift rn. pt is in in bed. appears to be in good mood. family at bedside. o2 saturation 89% on 4L nc.pt is sl. call light within reach. reprots no other needs at this time.
--- NOTE | 2017-07-07 20:11 | NUR ---
HELPED PT TO THE BATHROOM AND BACK TO BED. BEDSIDE TABLE AND CALL LIGHT WITHIN REACH.
--- NOTE | 2017-07-07 20:23 | NUR ---
HELPED PT TO THE BSC AND BACK TO BED. BEDSIDE TABLE AND CALL LIGHT WITHIN REACH.
--- NOTE | 2017-07-07 20:40 | NUR ---
VITALS AND I&OS DONE AND CHARTED. BEDSIDE TABLE AND CALL LIGHT WITHIN REACH. PT NEEDS NOTHING ELSE AT THIS TIME.
--- NOTE | 2017-07-07 21:33 | NUR ---
ASSISTED PT UP TO BSC WITH SBA AND 4L MASK IN PLACE. PT DESATTED TO 82% TITRATED TO 5L MASK TO RECOVER. TOOK PT 2 MINUTES TO RETURN SATURATION TO 90%. PT IS SOB WITH MINIMAL ACTIVITY. BACK TO BED. PT REPORTED 7/10 HEADACHE. PRN PAIN MEDICATION GIVEN. SLEEPING AIDE WAS GIVEN PER PT REQUEST. CALL LIGHT WITHN REACH. REFRESHED WATER. REPORTS NO OTHER NEEDS AT THIS TIME.
--- NOTE | 2017-07-08 01:57 | NUR ---
PT LYING ON RIGHT SIDE IN BED. SATURATIONS 93% ON 5L MASK. TITRATED PT TO 4L VIA MASK. SATURATIONS 92% AT THS TIME. CALL LIGHT WITHIN REACH. RESPIRATIONS EQUAL AND NONLABORED.
--- NOTE | 2017-07-08 05:22 | NUR ---
PT SLEPT THROUGHOUT THE NIGHT. NORCO GIVEN AT 2300 FOR HEADACHE. LUNGS HAVE CRACKLES IN THE BASES. ON TELE # 7 PERIODS OF BRADICARDIA. SATURAIONS AT REST WITH 4L MASK ARE 93%. WITH ACTIVITY PT DESATTED TO 82 ON 4L. RECOVERS SLOWLY EITH 5L JOANN IN PLACE. FLUID RESTRICION. DAILY WEIGHTS. PLAN TO DC TODAY.
--- NOTE | 2017-07-08 06:10 | NUR ---
VITALS AND I&OS DONE AND CHARTED. WIPED HER DOWN WITH HIBICLENS WIPES. NEW SOCKS AND NEW GOWN. BEDSIDE TABLE AND CALL LIGHT WITHIN REACH. WARM BLANKET GIVEN. EMPTIED GARBAGES.
--- NOTE | 2017-07-08 08:15 | NUR ---
PT SITTING UP IN BED, JUST FINISHING UP BREAKFAST. ALERT AND ORIENTED. PT STATES "I'M FEELING PRETTY GOOD, MUCH BETTER THAN I DID WHEN I GOT HERE." DENIES SOB OR DIFFICULTY BREATHING. PT SATTING 90-92% ON 4L NC. PT HAVING OCC HACKING COUGH, SCANT SPUTUM PRODUCTION. NO EDEMA NOTED. DENIES PAIN OR OTHER CONCERNS. PT MINIMAL ASSIST TO RECLINER. CALL LIGHT WITHIN REACH.
[2017-07-08] MEDS ORDERED: LISINOPRIL10 MG PO ×2 (09:42→09:43)
--- NOTE | 2017-07-08 09:45 | NUR ---
PT WAS SITTING UP IN BED GETTING READY TO WALK WITH RESP. THERAPY. VITALS WERE TAKEN AND PT IS NOW WALKING WITH RESP. THERAPY
[2017-07-08] MEDS ORDERED: LAMICTAL25 MG PO (10:04)
--- NOTE | 2017-07-08 10:15 | NUR ---
PT AMB HALLWAY WITH R.T. SATTING 100% ON 3LNC WITH ACTIVITY. PT BACK TO ROOM AND CONT TO REMAIN 98-100% ON 3LNC. PT SLIGHTLY GELLER, RECOVERED QUICKLY. SITTING UP IN BED. CALL LIGHT WITHIN REACH.
--- NOTE | 2017-07-10 11:19 | NUR ---
Heart Failure Follow Up call- Information received from [facility]ni [facility] that patient told her this AM that she was not feeling well and was short of breath. I contacted patient who states she is short of breath "even lying down". Cough is present, denies swelling, weight is up 3 lb since discharge (121 on DC, 124 today on home scales). Patient did not have a follow up with PCP Dr Perales, I have called and acquired and appointment at 1300 today with PCP. Rocío denies missed medications and does have transportation for today.
== END 2017-07-08 11:25 | disposition home or self-care (01) | DRG 293 ==
LOC: ED 15:31 → MS 17:25
PROVIDERS: ADMIT Internal Medicine
DX: I11.0 Hypertensive heart disease with heart failure (principal); I50.33 Acute on chronic diastolic (congestive) heart failure; J44.9 Chronic obstructive pulmonary disease, unspecified; I48.2 Chronic atrial fibrillation; G47.33 Obstructive sleep apnea (adult) (pediatric); R09.02 Hypoxemia; I73.9 Peripheral vascular disease, unspecified; Z88.8 Allergy status to other drugs, medicaments and biological substances; Z79.02 Long term (current) use of antithrombotics/antiplatelets; Z79.51 Long term (current) use of inhaled steroids; Z79.899 Other long term (current) drug therapy; Z87.891 Personal history of nicotine dependence; Z99.81 Dependence on supplemental oxygen; Z91.19 Patient's noncompliance with other medical treatment and regimen
CPT/HCPCS: 36415; 36600; 71045; 80048; 80053; 81001; 82803; 83605; 83880; 84484; 85025; 85379; 85610; 85730; 93005; 93010; 94640; 94660; 94762; 97116; 97162; 97165

== ENCOUNTER 2017-07-18 10:18 | Inpatient (IN) | payer MEDICARE, OTHER ==
[~2017-07-18] VITALS: Ht 162.6 cm; Wt 56.3 kg
[~2017-07-18 10:18] MED LIST changes: +K-TAB ER20 MEQ PO; +LAMICTAL25 MG PO; +XOPENEX HFA15 GM INH; +ZOLPIDEM TARTRAT5 MG PO
--- NOTE | 2017-07-18 17:32 | NUR ---
MEDICATION DUE. THIS RN TO BEDSIDE. MEDICATION GIVEN ORDERED. PT ANTICIPATING DINNER. NO REQUESTS OR COMPLAINTS AT THIS TIME. CALL LIGHT WITHIN REACH. BED RAILS UP.
--- NOTE | 2017-07-18 17:36 | NUR ---
MED REC COMPLETE
--- NOTE | 2017-07-18 17:50 | NUR ---
PT DIRECT ADMIT FOR SWING BED TODAY. SBA, DNR/DNI, CARDIAC DIET. LAST BM 07/12/17, MEDICATION ORDERS PLACED. NO PIV. HOME CPAP SHOULD BE COMING TO HOSPITAL. NEEDS TO BE CHECK BY RT, NEW MASK WILL BE NEEDED. PT REQUESTS HEATING PAD FOR NECK ARTHRITIS AT NIGHT. DAILY WEIGHT. NO FLUID RESTRICTION NEEDED AT THIS TIME, CLOSELY MONITOR I/O AND WEIGHT.
--- NOTE | 2017-07-18 18:20 | NUR ---
THIS POST SPLITTER STANDBY ASSISTED PATIENT UP TO BATHROOM AND BACK TO BED. PATIENT SITTING UP IN BED, EATING CAKE. PATIENT CALL LIGHT IN REACH. NO OTHER NEEDS AT THIS TIME.
--- NOTE | 2017-07-18 19:00 | NUR ---
REPORT RECEIVED FROM DAY SHIFT NURSE. PATIENT RESTING IN BED. FAMILY AT BEDSIDE. PATIENT DENIES ANY OTHER NEEDS AT THIS TIME. CALL LIGHT WITHIN REACH.
[2017-07-18] MEDS ORDERED: ADULT ASPIRIN81 MG PO (19:24)
[2017-07-18] MEDS ORDERED: SENOKOT-S TABL1 EACH PO (19:26)
[2017-07-18] MEDS ORDERED: XANAX0.25 MG PO (19:28)
[2017-07-18] MEDS ORDERED: BUTALB-ACETAMI1 EACH PO (19:29)
[2017-07-18] MEDS ORDERED: MORPHINE SULFAT15 MG PO (19:30)
--- NOTE | 2017-07-18 21:00 | NUR ---
PATIENT ASSESSMENT COMPLETED. PM MEDICATIONS GIVEN PER ORDER. SNACK PROVIDED FOR PO MEDICATION, TOLERATED WELL. PATIENT STATED HER "APPETITE HAS INCREASED". PATIENT DENIES PAIN AT THIS TIME. FAMILY AT BEDSIDE. PATIENT ON 4L VIA OXYMASK, RR 20. PATIENTS OWN CPAP SET UP BY RT AT BEDSIDE. PATIENT WATCHING TV WITH FAMILY. PATIENT DENIES ANY OTHER NEEDS AT THIS TIME. CALL LIGHT WITHIN REACH.
--- NOTE | 2017-07-18 21:34 | NUR ---
ASSISTED PATIENT TO THE BATHROOM AND BACK TO BED X2
--- NOTE | 2017-07-18 23:45 | NUR ---
PATIENT RESTING IN BED WITH EYES CLOSED. CPAP ON. RR 17. BREATHING EVEN AND UNLABORED. CALL LIGHT WITHIN REACH.
--- NOTE | 2017-07-19 01:52 | NUR ---
PATIENT ASSISTED TO RESTROOM, SBA. TOLERATED WELL, NO SOB NOTED. PATIENT ABLE TO VOID. PATIENT STATED SHE IS SLEEPING "OFF AND ON". WARM BLANKET OFFERED, PATIENT DENIES AT THIS TIME. PATIENT DENIES PAIN OR NEED FOR PAIN MEDICATION. PATIENT ASSISTED BACK TO BED. CPAP ON. PATIENT DENIES ANY OTHER NEEDS AT THIS TIME. CALL LIGHT WITHIN REACH.
--- NOTE | 2017-07-19 03:05 | NUR ---
PATIENT RESTING IN BED WITH EYES CLOSED. BREATHING UNLABORED AND EVEN, RR 17. CPAP ON. CALL LIGHT WITHIN REACH.
--- NOTE | 2017-07-19 04:30 | NUR ---
PATIENT ASSISTED TO RESTROOM, SBA. PATIENT TOLERATED WELL, NO SOB NOTED. PATIENT DENIES PAIN AT THIS TIME. PATIENT ABLE TO VOID. PATIENT DENIES ANY OTHER NEEDS AT THIS TIME. CALL LIGHT WITHIN REACH.
--- NOTE | 2017-07-19 04:57 | NUR ---
PATIENT RESTED THROUGHOUT NIGHT. CPAP IN PLACE AT NIGHT. 2-4L OF OXYGEN VIA NC OR OXYMASK WHILE AWAKE. SNACK PROVIDED X1. PATIENT DENIES PAIN. CARDIAC DIET. PATIENT SBA WHEN AMBULATING. PATIENT HAS NO IV ACCESS. LAST BM 07/12/17. PATIENT IS A DAILY WEIGHT. NO FLUID RESTICTION AT THIS TIME. CLOSELY MONITOR I&Os.
--- NOTE | 2017-07-19 06:15 | NUR ---
PATIENT RESTING IN BED. DAILY WEIGHT TAKEN. I&Os RECORDED. COFFEE GIVEN TO PATIENT PER REQUEST. PATIENT DENIES ANY OTHER NEEDS AT THIS TIME. CALL LIGHT WITHIN REACH.
--- NOTE | 2017-07-19 07:30 | NUR ---
REPORT GIVEN FROM INVESTMENT ASSOCIATE RN. PATIENT SITTING UP IN BED WATCHING TV. NO C/O OF PAIN AT THIS TIME. PATIENT AWAITING BREAKFAST AND IS CURRENTLY ON 2L/NC AND HAD JUST RETURNED FROM USING THE RESTROOM.
--- NOTE | 2017-07-19 07:43 | NUR ---
PATIENT SITTING UP IN BED, WAITING FOR BREAKFAST. PATIENT WASHED HANDS AND FACE WITH WARM WASH CLOTH. PATIENT STATES SHE WOULD LIKE TO BRUSH HER TEETH AFTER BREAKFAST. PATIENT CALL LIGHT IN REACH. NO OTHER NEEDS AT THIS TIME.
--- NOTE | 2017-07-19 08:58 | NUR ---
THIS NUTRITIONAL CHEMIST STANDBY ASSISTED PATIENT INTO SHOWER. PATIENT SHOWERED INDEPENDENTLY. ORAL CARE PERFORMED, HAIR COMBED. LINENS CHANGED. PATIENT IN BED APPLYING LOTION. CALL LIGHT IN REACH. NO OTHER NEEDS AT THIS TIME.
--- NOTE | 2017-07-19 10:46 | NUR ---
STUDENT NURSE IN ROOM WITH PATIENT. PATIENT RESTING IN BED, CALL LIGHT IN REACH. NO OTHER NEEDS AT THIS TIME.
--- NOTE | 2017-07-19 12:24 | NUR ---
PATIENT SITTING UP IN BED, EATING LUNCH. CALL LIGHT IN REACH. NO OTHER NEEDS AT THIS TIME.
[2017-07-19] MEDS ORDERED: FLONASE ALLERG9.9 ML NAS (12:27)
--- NOTE | 2017-07-19 12:48 | NUR ---
PATIENT SITTING IN BED FINISHING LUNCH. PATIENT ALREADY HAS BEEN UP WITH PT TODAY WALKING IN THE HALLS AND PER PT SHE TOLERATED THAT WELL.
--- NOTE | 2017-07-19 13:06 | NUR ---
PT TRANSFERRED FROM [facility] HERE ON SWING BED. PT UP WALKING WITH PEnedina MARIN SMILE, MENTIONED IT FELT GOOD TO BE UP. EXTENDED A BLESSING, WILL CONTINUE TO FOLLOW NEEDED
--- NOTE | 2017-07-19 13:36 | NUR ---
AILYN QUALITY NURSE ASSISTED PATIENT UP TO BATHROOM, BACK TO BED. PATIENT RESTING IN BED . CALL LIGHT IN REACH. NO OTHER NEEDS AT THIS TIME.
--- NOTE | 2017-07-19 16:23 | NUR ---
pt complained of headache 5/10. gave 7.5mg morphine po.
--- NOTE | 2017-07-19 17:04 | NUR ---
PATIENT RESTING IN BED, CALL LIGHT IN REACH, FAMILY IN ROOM. NO OTHER NEEDS AT THIS TIME.
--- NOTE | 2017-07-19 19:00 | NUR ---
PATIENT HAS HAD A GOOD DAY. PATIENT HAS SAT UP IN BED FOR MEALS. PATIENT WAS UP IN THE [place] TODAY WALKING WITH STANDBY FROM PT. PATIENT HAD A SHOWER THIS AM AND TOLERATED THAT WELL. PATIENT HAD A HEADACHE IN THE EVENING RELIEVED BY PO MORPHINE.
--- NOTE | 2017-07-19 19:46 | NUR ---
RECEIVED REPORT FROM DAY SHIFT RN. PATIENT IS RESTING IN BED VISITING WITH HIS DAUGHTER. PATIENT DENIES ANY NEEDS CALL LIGHT IN REACH.
--- NOTE | 2017-07-19 21:02 | NUR ---
PATIENT ASSEMENT COMPLETED. PATIENTS VITALS TAKEN AND RECORDED BY TISSUE COORDINATOR. PATIENTS EVENING MEDCIATIONS GIVEN PER ORDER. PATIENT ADMINISTERED PRN SUPPOSTITORY. PATIENT DENIES ANY SOB. PATIENT RATES PAIN AT A 3/10 IN HER NECK AND BACK. PATIENT IS ON 5L VIA NC. PATIENTS ICE WATER REFILLED. PATIENT DENIES ANY FURTHER NEEDS AT THIS TIME. CALL LIGHT IN REACH.
--- NOTE | 2017-07-19 21:28 | NUR ---
PATIENT ASSISTED TO THE RESTROOM A SBA. PATIENT IS ON 4L VIA NC. PATIENT HAD SMALL, HARD, BM. PATIENT IS NOW BACK IN BED RESTING. PATIENT PLACED HOME CPAP. ON NO FURTHER NEEDS NOTED. CALL LIGHT IN REACH.
--- NOTE | 2017-07-19 23:59 | NUR ---
PATIENT IS RESTING IN BED WITH EYES CLOSED. RR 18. PATIENT IS WERAING HOME CPAP. CALL LIGHT IN REACH.
--- NOTE | 2017-07-20 01:45 | NUR ---
HELPED PT TO THE BATHROOM AND BACK TO BED. BEDSIDE TABLE AND CALL LIGHT WITHIN REACH. PT PUT BACK ON HER C-PAP WHILE I WAS IN THE ROOM.
--- NOTE | 2017-07-20 01:59 | NUR ---
PATIENT HAD A BM. PATIENT ASSISTED TO THE RESTROOM BY [place] SEAMER. PATIENT IS NOW BACK IN BED RESTING WEARING CPAP. NO NEEDS NOTED. CALL LIGHT IN REACH.
--- NOTE | 2017-07-20 03:44 | NUR ---
PATIENT ASSISTED TO THE RESTROOM A SBA. PATIENT WAS ABLE TO VOID. PATIENTS DAILY WEIGHT TAKEN AND RECORDED. PATIENT IS BACK IN BED RESTING. PATIENT IS WEARING HOME CPAP. NO FURTHER NEEDS NOTED. CALL LIGHT IN REACH.
--- NOTE | 2017-07-20 04:56 | NUR ---
PATIENT RESTED WELL THROUGHOUT THE SHIFT. PATIENT WORE HOME CPAP WHILE ASLEEP. PATIENT IS SWING BED. PATIENT IS ON A CARDIAC DIET. PATIETN SWITCHES BACK AND FORTH BETWEEN NC AND OXYMASK. PATIENT IS A SBA. PATIENT IS A DAILY WEIGHT. SOB W/ACTIVITY. AAOX3 AND USES CALL LIGHT APPROPRIATELY.
--- NOTE | 2017-07-20 05:45 | NUR ---
PATIENT IS RESTING IN BED W/HOME CPAP ON. LAB IN ROOM TO DRAW BLOOD. PATIENT DENIES ANY NEEDS. CALL LIGHT IN REACH.
--- NOTE | 2017-07-20 07:30 | NUR ---
PATIENT GOT UP TO THE RECLINER. OXYMASK AT 4L/MIN CHANGED TO 4L/NC. PATIENT READY FOR BREAKFAST. PATIENT HAD A LARGE BM LAST NIGHT AND HER ABD IS FEELING BETTER. WARM BLANKET GIVEN FOR LAP. CALL LIGHT IN REACH AND PATIENT IN NO PAIN. AM ASSESSMENT COMPLETE. NOTHING ELSE TO REPORT AT THIS TIME.
--- NOTE | 2017-07-20 07:31 | NUR ---
PATIENT UP IN CHAIR, OXYGEN MASK ON. RN SONU IN RM. BED MADE AND ROOM TIDIED. CALL LIGHT IN REACH
--- NOTE | 2017-07-20 08:15 | NUR ---
STAND BY ASSIST TO BATHROOM. STILL WORKING ON BREAKFAST. PATIENT WILL CALL WHEN READY
--- NOTE | 2017-07-20 08:16 | NUR ---
PATIENT CONTINUING WITH BREAKFAST, BUT HAD TO TAKE A BREAK TO USE THE BATHROOM.
--- NOTE | 2017-07-20 09:59 | NUR ---
PATIENT DEVELOPED A HEADACHE OF 5/10 AND WAS GIVEN 7.5MG PO MORPHINE.
--- NOTE | 2017-07-20 10:24 | NUR ---
SWITCH NASAL CANNULA TO OXY MASK.
--- NOTE | 2017-07-20 11:01 | NUR ---
PATIENT'S HEADACHE IS GONE AND SHE IS NOW GETTING UP WITH PT TO WALK IN THE HALLWAY.
--- NOTE | 2017-07-20 11:16 | NUR ---
pt WAS ASKED IF SHE WOULD LIKE TO SHOWER, pt SAID NO BECAUSE SHE SHOWERED YESTERDAY.
--- NOTE | 2017-07-20 11:32 | NUR ---
PATIENT BACK FROM AMBULATING HALLS WITH P/T. SITTING IN CHAIR, FRESH ICEWATER GIVEN. LINENS CHANGED. CALL LIGHT INREACH
--- NOTE | 2017-07-20 11:35 | NUR ---
PATIENT GETTING READY TO EAT LUNCH AND AND IS CURRENTLY VISITING WITH THE NATALIE.
--- NOTE | 2017-07-20 12:29 | NUR ---
STANDBY ASSIST PATIENT TO BR, AND BACK TO BED. SWITCHED FROM NASAL CANULA TO MASK. ICE FOR SODA GIVEN,CALL LIGHT IN REACH. NO OTHER NEEDS
--- NOTE | 2017-07-20 12:35 | NUR ---
PATIENT RELAXING IN BED AND IN NO DISCOMFORT AT THIS TIME. PATIENT HAS NO REQUESTS AT THIS TIME. CALL LIGHT IN REACH.
--- NOTE | 2017-07-20 13:27 | NUR ---
PT IS ALERT AND ORIENTED. SEEMS MUCH STRONGER TODAY, WITH A QUICK WIT. HAD A PLEASANT VISIT WITH PT, SHE EXPRESSED SOME HONEST FEELINGS ABOUT GROWING OLDER AND THE CHALLENGES THAT BRINGS. HER CHILDREN DIDN'T SEEM TO UNDERSTAND THE EXTENT OF HER MED NEEDS, AND MISUNDERSTOOD WHY SHE WASN'T ABLE TO PERFORM TO THEIR PERCIEVED CAPABILITIES. PT ALSO LAMENTED THE FACT THAT SHE HAS NOT BEEN ABLE TO ATTEND PENTECOSTALISM OR BE INVOLVED IN DUTIES AND RESPONSIBILITIES. SHE ASKED IF I COULD CONTACT HER WELL TESTER AND HAVE THEM SEND HER HIS SERMONS ON CD-WHICH I DID. HAD PRAYER WITH PT, WILL CONTINUE TO FOLLOW NEEDED
--- NOTE | 2017-07-20 16:50 | NUR ---
PATIENT CURRENTLY FINISHING HER DESSERT AND VISITING WITH DAUGHTER. REPORT GIVEN TO BAMBI BERGMAN.
--- NOTE | 2017-07-20 18:02 | NUR ---
PT ALERT/ORIENTED. PT ON 4L NC/OXYMASK, REQUIRED 5L NC WHEN AMBULATING WITH PT. PT ON REGULAR DIET. PT SBA TO AMBULATE. VOIDING QS, HAD BM TODAY. WITHOUT IV ACCESS.
--- NOTE | 2017-07-20 19:54 | NUR ---
Up to brp, voided, back to bed, O2 4L nc at this time. Coop with assessments
--- NOTE | 2017-07-20 20:09 | NUR ---
MEDICATED WITH MORPHINE 7.5MG C/O INSOMNIA,H/A AND BACK ACHE
--- NOTE | 2017-07-20 20:19 | NUR ---
I&OS DONE AND CHARTED. PT NEEDS NOTHING ELSE AT THIS TIME.
--- NOTE | 2017-07-20 22:37 | NUR ---
CONTINUES ON SWING BED STATUS, DAILY WEIGHT, CURRENTLY RESTING, EYES CLOSED, USING CPAP, NO RESP DISTRESS, CALL LIGHT AT BEDSIDE
--- NOTE | 2017-07-20 23:18 | NUR ---
ASSISTED PT TO BATHROOM. PT VOIDED 250ML. PT IS BACK IN BED. HOME C-PAP/BI-PAP IS ON. PT HAD NO OTHER NEEDS AT THAT TIME.
--- NOTE | 2017-07-21 01:23 | NUR ---
medicated with xanax 0.25mg po c/o increased anxiety
--- NOTE | 2017-07-21 05:24 | NUR ---
PT HAS SLEPT THIS SHIFT. RECEIVEED MORPHINE 7.5MG PO PER C/O PAIN WITH PAIN RELIEF AND XANAX FOR ANXIETY AND INSOMNIA. EFFECTIVE, USES CPAP AT HS, AND USING O2 AT 4L ALTERNATING VIA NC AND OXYMASK. REQUIRES ONE PERSON ASSIST, COOPERATIVE WITH ASSESSMENT, HAD A BM
--- NOTE | 2017-07-21 07:20 | NUR ---
HANDOFF REPORT RECIEVED FROM BAMBI WINKLER.
--- NOTE | 2017-07-21 08:00 | NUR ---
PT RESTING IN BED. PT ON 4L OXYMASK, LUNG SOUNDS CLEAR WITH DIMINISHED BASES, PT DENIES SOB AT THIS TIME. PT DENIES PAIN. PT TOLERATING REGULAR DIET, BOWEL TONES ACTIVE, REFUSED SENNA BUT TOOK MIRALAX. PT WIHTOUT EDEMA, CMS INTACT, DENIES NUMBNESS AND TINGLING. PT WITHOUT IV ACCESS. VSS. PT ASSISTED TO BATHROOM AND THEN TO CHAIR TO EAT BREAKFAST. PT SWICTHED TO NASAL CANNULA. PT DENIES OTHER NEEDS AT THIS TIME.
--- NOTE | 2017-07-21 10:58 | NUR ---
PT RESTING IN BED, O2 MASK ON SHE CONFESSED THAT SHE DID NOT SLEEP WELL AND WOULD REALLY LIKE TO GET SOME REST. WE HAD A BRIEF PRAYER TOGETHER, AND P.T. CAME IN I WAS LEAVING.
--- NOTE | 2017-07-21 10:58 | NUR ---
AFTER PT. PATIENT RESTING ON BED. STATING THAT SHE NEEDS HER INHALER. STATING SHE WAS VERY SOB. OXYGEN LEVEL TAKEN. INHALOR GIVEN TO PATIENT AND RT CALLED TO ROOM. PATIENT RECOVERED WELL AFTER INHALOR.
--- NOTE | 2017-07-21 12:52 | NUR ---
PT ASSISTED TO BATHROOM AND BACK TO BED. PT DENIES OTHER NEEDS AT THIS TIME. FAMILY AT BEDSIDE.
--- NOTE | 2017-07-21 14:53 | NUR ---
PATIENT DID HER OWN PARTIAL BATH THIS AFTERNOON. SHE WAS WORKING WITH PHYSICAL THERAPY.
--- NOTE | 2017-07-21 17:29 | NUR ---
PATIENT HAS HER C-PAP ON AND RESTING IN BED UNTIL HER DINNER GETS HERE.
--- NOTE | 2017-07-21 17:29 | NUR ---
PT ON 4L NC/OXYMASK, LUNG SOUNDS CLEAR WITH DIMINISHED BASES. PT TOLERATING REGULAR DIET, POOR APPETITE. PT WITH HEADACHE THIS EVENING, GIVEN PRN TYLENOL AND MORPHINE. PT AMBULATING WITH SBA TO BATHROOM, WALKED IN STRAUSS WITH PHYSCIAL THERAPY. PT DID REQUIRE PRN ALBUTEROL INHALER AFTER WALKING WITH PHYSICAL THERAPY. PT VOIDING QS, SMALL BM TODAY.
--- NOTE | 2017-07-21 17:46 | NUR ---
PT CONTINUES TO COMPLAIN OF HEADACHE, RATING PAIN 7-8/10. PT GIVEN 650 MG PO TYLENOL. PT ASSISTED TO BATHROOM AND BACK TO BED. CPAP MASK IN PLACE. PT PROVIDED WARM PACK FOR HEADACHE. PT DENIES OTHER NEEDS AT THIS TIME.
--- NOTE | 2017-07-21 18:49 | NUR ---
BROUGHT PATIENT IN HER DINNER. SHE IS SLOWLY EATING IT. SHE ALSO HAS A VISITOR.
--- NOTE | 2017-07-21 20:00 | NUR ---
RECEIVED REPORT AT Y1900, FOUND PT IN BED ON THE PHONE.
--- NOTE | 2017-07-21 22:00 | NUR ---
V/S ARE WDL, ALL LOBES ARE CLEAR. OUTPUT AND INTAKE ARE WDL, PT IS WALKING WELL TO BATHROOM. PT IS IN BED. C-PAP IS ON. NO NEW CONCERNS AT THIS TIME.
--- NOTE | 2017-07-22 | NUR ---
PT IS STILL SLEEPING. NO NEW CONCERNS AT THIS TIME.
--- NOTE | 2017-07-22 03:30 | NUR ---
ASSISTED PT TO BATHROOM. PT IS BACK IN BED. NO NEW CONCERNS AT THIS TIME. PT HAS NO NEEDS AT THIS TIME.
--- NOTE | 2017-07-22 04:00 | NUR ---
PT IS SLEEPING AT THIS TIME.
--- NOTE | 2017-07-22 05:18 | NUR ---
PT OVERALL HAD AN UNEVENTFUL NIGHT. PT HAS BEEN SLEEPING MOST OF THE NIGHT. V/S ARE WDL. PT IS ON HOME C-PAP WHILE SLEEPING. OTHERWISE 4L OXYMASK WHILE AWAKE. INTAKE OUTPUT IS WDL. ALL LOBES ARE CLEAR. ON EDEMA NOTED. NO NEW CONCERNS FOR THIS SHIFT.
--- NOTE | 2017-07-22 07:18 | NUR ---
HANDOFF REPORT RECEIVED FROM TRANSPORTATION LEAD RN. PT SLEEPING, LEFT UNDISTURBED.
--- NOTE | 2017-07-22 09:15 | NUR ---
PT RESTIGN IN BED. PT DENIES SOB. PT STATES SHE SLEPT WELL. PT REPORT OF COUGHING UP BLOOD, SMALL AMOUNT OF BLOOD STREAKED CLEAR SPUTUM IN [place]. PT TOLERATING CARDIAC DIET, SMALL APPETITE, GIVEN CLEAR ENSURE. PT BOWEL TONES ACTIVE, PT WITH SOFT STOOL YESTERDAY, HELD MIRALAX AND SENNA HELD. CMS INTACT, WITHOUT EDEMA. PT REQUESTING TO HAVE ALBUTEROL MID PRIOR TO PHYSICAL THERPAY. DISCUSSED PLAN OF CARE FOR THE DAY. PT DENIES OTHER NEEDS AT THIS TIME.
--- NOTE | 2017-07-22 11:22 | NUR ---
PT GIVEN MORPHINE FOR SOB AND ALBUTEROL MDI BEFORE WALKING WITH PHYSICAL THERAPY. PT ASSISTED TO BATHROOM AND BACK TO BED. PT DENIES OTHER NEEDS AT THIS TIME.
--- NOTE | 2017-07-22 11:25 | NUR ---
PATIENT WALKING WITH P/T, FRESH ICE WATER GIVEN.
--- NOTE | 2017-07-22 12:40 | NUR ---
STANDBY ASSIST PATIENT INTO BR. PATIENT BACK IN BED FOR NAP WITH CPAP ON. CALL LIGHT IN REACH
--- NOTE | 2017-07-22 13:11 | NUR ---
PATIENT IN BED, CPAP ON. DAUGHTER IN ROOM. ES IN ROOM FOR HOUSEKEEPING. I/OS CHARTED.CALL LIGHT IN REACH
--- NOTE | 2017-07-22 14:05 | NUR ---
PATIENTS DAUGHTER EXPRESSING CONCERN ABOUT HER MOTHERS CONDITION/MOOD TODAY. FEELS THOUGH SHES NOT DOING WELL YESTERDAY. BAMBI BERGMAN NOTIFIED
--- NOTE | 2017-07-22 14:59 | NUR ---
PATIENT SAID NO SHOWER TODAY BUT WILL TAKE ONE TOMORROW.
--- NOTE | 2017-07-22 15:01 | NUR ---
JUST CHECKED ON HER SHE HAS HER CPAP ON AND SHE IS SLEEPING.
--- NOTE | 2017-07-22 15:20 | NUR ---
PT DAUGHTER REQUESTING UPDATE AND TO DISCUSS PT CONDITION. UPDATE PROVIDED. DAUGHTER CONCERNED THAT PT DOES NOT APPEAR TO BE DOING WELL TODAY, DISCUSSED WITH DAUGHTER. UPDATED ON PHYSICAL THERAPY TODAY AND IMRPOVEMENT ON OXYGEN STATUS. DAUGHTER LEAVING FOR THE AFTERNOON. PT RESTING IN BED, CPAP IN PLACE.
--- NOTE | 2017-07-22 15:45 | NUR ---
PT WITH SOB, ANXIOUS AFTER REMOVING CPAP MASK AFTER NAP. O2 SATS 92%, REASSURED, WORK OF BREATHING IMPROVING. PT FEELING BETTER, REQUESTIGN ASSISTANCE TO BATHROOM, SBA. PT ASSISTED BACK TO BED. PROVIDED ICE CREAM DAUGHTER HAD BROUGHT IN. PT DENIES OTHER NEEDS. EDEUCATED ON COPD. PT ENCOURAGED TO CALL IF SHE FELT LIKE SHE NEEDED A RESPIRATORY TREATMENT.
--- NOTE | 2017-07-22 16:10 | NUR ---
PT CALLED FOR RESPIRATORY TREATMENT. NUCLEAR FUELS RECLAMATION ENGINEER NOTIFIED.
--- NOTE | 2017-07-22 17:45 | NUR ---
PT REQUESTING PRN ALBUTEROL INHALER, PT RECENTLY DOSE AT 1611, PT ANXIOUS INCREASED WORK OF BREATHING. PT STATES "I WAS TOLD I COULD HAVE IT WHENEVER I NEED IT". MD CALLED, ONE TIME ORDER FOR ALBUTEROL INHALER. PT GIVEN TREATMENT. PT ASSISTED INTO BED. OXYMASK ON AT 3L. PT DENIES OTHER NEEDS AT THIS TIME.
--- NOTE | 2017-07-22 18:31 | NUR ---
PT WITH INCREASED ANXIETY AND SOB TODAY, ON 2-3L OXYMASK AND NASAL CANNULA, CPAP WHEN SLEEPING, RECEIVED PRN ALBUTEROL INHALERS. PT WITH POOR APPETITE, TOLERATED CLEAR ENSURE, BOWEL TONES ACTIVE. PT UP WITH SBA TO BATHROOM, VOIDING QS. WAS NOT ABLE TO WALK FAR WITH PHYSICAL THERAPY TODAY.
--- NOTE | 2017-07-22 18:45 | NUR ---
DISCUSSED ANXIETY AND WORK OF BREATHING WITH MD. VERBAL ORDER FOR ONE TIME DOSE OF 0.25 PO XANAX.
--- NOTE | 2017-07-22 19:20 | NUR ---
BEDSIDE REPORT RECEIVED FROM OFFGOING RN. PT LYING IN BED. DENIES NEEDS AT THIS TIME. CALL LIGHT WITHIN REACH.
--- NOTE | 2017-07-22 21:51 | NUR ---
STANDBY ASSIST TO THE BATHROOM AND BACK TO BED.
--- NOTE | 2017-07-22 21:54 | NUR ---
PT ASSESSMENT COMPLETE. PT RATES PAIN 4-5/10 DUE TO HEADACHE. PRN TYLENOL ADMINISTERED. PT STATES THAT SOB IS AT NORMAL LEVEL FOR HER. O2 IN PLACE @ 4LPM VIA NC. LUNG SOUNDS CLEAR. PT REQUESTING TO TAKE SENNA IN NIGHTLY PILLS LOOSE STOOLS HAVE CEASED. PT REPORTS DECREASED APPETITE. REQUESTS PUDDING WITH NIGHTLY PILLS DUE TO MISSING DINNER. PT ASSISTED TO THE BATHROOM AND BACK TO BED. PT PUT ON CPAP FOR THE NIGHT, O2 IN PLACE VIA CPAP. PT DENIES OTHER NEEDS. CALL LIGHT WITHIN REACH.
--- NOTE | 2017-07-23 00:08 | NUR ---
CHARGE NURSE NOTE: CONTINUES ON SWING BED STATUS. O2 IN PLACE, DENIES RESP DISTRESS,
--- NOTE | 2017-07-23 01:22 | NUR ---
PT UTILIZES CALL LIGHT, REQUESTS ASSISTANCE USING THE BATHROOM. PT UP TO BATHROOM WITH 1PA AND ASSISTED BACK TO BED. PT DENIES NEEDS AT THIS TIME. PT ASSISTED WITH REPLACING CPAP FACE MASK. CALL LIGHT WITHIN REACH.
--- NOTE | 2017-07-23 03:48 | NUR ---
pt rsting in bed with eyes closed. respirations even and unlabored. pt appears to be sleeping. no s/sx of distress noted, pt does not wake while job specification writer in doorway. call light within reach.
[2017-07-23] MEDS ORDERED: SPIRIVA18 MCG INH (08:10)
--- NOTE | 2017-07-23 08:17 | NUR ---
PATIENT UP THIS MORNING, SET UP WITH ADLS, UP TO BATHROOM. COMPLAINTS OF PAIN 2/10 ON PAIN SCALE FOR MORNING ACHES ADMINISTERED TYELENOL. FULL BODY ASSESMENT DONE, PATIENT TITRATED BACK TO 2L NC, NOW EATING BREAKFAST.
--- NOTE | 2017-07-23 09:06 | NUR ---
PT KIA POOR FOR BKF THIS AM, BUT PT FELT SHE DID GOOD WITH EATING THIS AM. PT JOKES WITH STAFF WHEN TALK WITH THEM. FL IS COOPERATIVE WITH HOSPITAL ROUTINE, HAS O2 VIA NC ON AT THIS TIME. APPEARS TO BE COMFORTABLE AND IN NO DISTRESS AT THIS TIME.
--- NOTE | 2017-07-23 11:59 | NUR ---
PT SITTING UP IN BED AT THIS TIME, EATING LUNCH. PT IS EATING A LITE LUNCH AT THIS TIME. NO C/O'S AT THIS TIME.
--- NOTE | 2017-07-23 12:23 | NUR ---
MEDICATED WITH 7.5MG PO MORPHIN IR AT THIS TIME TO HELP WITH RESP STATUS WHILE AMBULATION.
--- NOTE | 2017-07-23 12:33 | NUR ---
PT WAS GIVEN MORPHINE BEFROE SHE WALKS WITH PHYSICAL THERAPY.
--- NOTE | 2017-07-23 13:22 | NUR ---
PT APPEARS TO BE SLEEPING AT THIS TIME. PT DID WORK WITH PHYSICAL THERAPY AND DID FAIR TODAY, WAS NOT ABLE TO WALK FAR SHE DID YESTERDAY, BUT WAS ABLE TO COMPLETE MORE EXERCISE TODAY.
--- NOTE | 2017-07-23 13:45 | NUR ---
RT IN WITH PATIENT, I/OS CHARTED. CALL LIGHT IN REACH
--- NOTE | 2017-07-23 14:00 | NUR ---
PT ASKED FOR NEB TX FOR SOB AT 1330. AFTER TX PT FEELS THAT IT HELPED HER. PT CURRENTLY IN BED READING AT THIS TIME.
--- NOTE | 2017-07-23 15:23 | NUR ---
PT DAUGHTER INTO SEE PTS AT THIS TIME. SHE ASKED QUESTION AND THEY WERE ANSWERED.
--- NOTE | 2017-07-23 16:55 | NUR ---
PATIENT CALLED FOR ASSISTANCE USING THE BATHROOM, SHE WALKED IN AND SAID SHE WOULD PULL THE BLUE CALL LIGHT WHEN SHE WAS DONE
--- NOTE | 2017-07-23 17:20 | NUR ---
PT REQUESTING A NEB, LOCOMOTIVE FIRER/FIREMAN UNAVAILABLE, DUO NEB PROVIDED. PT LUNG SOUNDS CLEAR ON LEFT DIMINISHED ON RIGHT. POTASSIUM CHLORIDE PROVIDED. DINNER AT BEDSIDE, PT SITTING ON EDGE OF BED FOR DINNER. PT DENIES OTHER NEEDS AT THIS TIME.
--- NOTE | 2017-07-23 19:05 | NUR ---
BEDSIDE REPORT RECEIVED FROM OFFGOING RN. PT REQUESTING NIGHTTIME MEDICATIONS, CANDELARIA. XANAX.
--- NOTE | 2017-07-23 20:17 | NUR ---
NIGHTLY MEDICATIONS ADMINISTERED. PT REPORTS FEELING ANXIOUS AND SOB. SAO2 NOTED TO BE 88% WITH FOREHEAD PROBE ON 2 LPM OF O2 VIA OXYMASK. O2 INCREASED TO 3LPM, SAO2 INCREASED TO 93% WITH FOREHEAD PROBE. PT ALSO REQUESTING MORPHINE FOR SOB. PT REPORTS HEADACHE WELL, RATES 8/10. PT WILL NOTIFY CHAIN TESTING MACHINE OPERATOR IF MORPHINE DOES NOT ALSO TAKE CARE OF HEADACHE. PT ASSESSMENT COMPLETE. PT DENIES OTHER NEEDS AT THIS TIME. CALL LIGHT WITHIN REACH. PT FAMILY AT BEDSIDE WITH PT.
--- NOTE | 2017-07-23 22:01 | NUR ---
ASSISTED PT BACK FROM THE BATHROOM, EXTREMELY SOB, SITTING UP OVER HER LEGS TO CATCH HER BREATH. SAT AND VISITED WITH HER, SHE TALKED ABOUT HER FAMILY AND THAT SHE IS "GOING DOWN [place]". DENIES OTHER NEEDS AT THIS TIME.
--- NOTE | 2017-07-24 00:45 | NUR ---
PT RESTING IN BED ON L SIDE. RESPIRATIONS EVEN AND UNLABORED. CPAP IN PLACE APPROPRIATELY. NO S/SX OF DISTRESS NOTED. PT APPEARS TO BE SLEEPING. CALL LIGHT WITHIN REACH.
--- NOTE | 2017-07-24 03:15 | NUR ---
PT RESTING IN BED WITH EYES CLOSED. RESPIRATIONS EVEN AND UNLABORED. NO S/SX OF DISTRESS NOTED. CPAP IN PLACE APPROPRIATELY. PT APPEARS TO BE SLEEPING. CALL LIGHT WITHIN REACH.
--- NOTE | 2017-07-24 05:38 | NUR ---
PT SLEPT THROUGH THE NIGHT. O2 @ 3 LPM VIA OXYMASK & NC. USE FOREHEAD PROBE TO MONITOR SAO2. CPAP WHILE SLEEPING. PRN ALBUTEROL INHALERS. ANXIOUS AT TIMES. MORPHINE X 1 FOR SOB THIS SHIFT, XANAX X 1 FOR ANXIETY. DECREASED APPETITE, ENCOURAGE INTAKE. SBA TO BATHROOM. NO IV ACCESS. UO QS.
--- NOTE | 2017-07-24 07:31 | NUR ---
Got pt. back to bed from restroom. She voided 400, cleaned up her room and made her bed and got her fresh ice water. pt. is in good spirits and has ordered breakfast. call light in reach.
--- NOTE | 2017-07-24 08:45 | NUR ---
BEDSIDE REPORT RECEIVED FROM BURAK LACY. WHITE BOARD UPDATED. PATIENT SITTING UP IN RECLINER. BREAKFAST DELIVERED TO ROOM. APPETITE POOR. PATIENT SITTING AT BEDSIDE NOW. C/O HEADACHE. SCHEDULED MEDS ADMINISTERD.
--- NOTE | 2017-07-24 14:52 | NUR ---
pt taken to xray to get chest xray to see if patient getting fluid overloaded. pt wearing cpap now in bed.
--- NOTE | 2017-07-24 16:55 | NUR ---
pt calls appropriately to have SBA to bathroom.
--- NOTE | 2017-07-24 18:14 | NUR ---
SWING BED PATIENT. CARDIAC DIET. DAILY WEIGHT. 124.1# TODAY. CPAP WHEN SLEEPING. 2L O2 VIA NC/OXYMASK WHEN AWAKE. SBA TO BATHROOM. TORSEMIDE GIVEN THIS EVENING. UP TO BATHROOM OFTEN. CHEST XRAY SHOWS SMALL BILATERAL EFFUSIONS. INHALERS IN KITS LIST.
--- NOTE | 2017-07-24 19:52 | NUR ---
REPORT RECEIVED FROM OFFGOING RN. PT RESTING IN BED. PT FAMILY IN TO SEE PT. UPDATE PROVIDED TO PT'S DAUGHTER.
--- NOTE | 2017-07-24 20:50 | NUR ---
PT UTILIZES CALL LIGHT, REQUESTS NIGHT PILLS BE ADMINISTERED. PT REPORTS HEADACHE /10, DECLINES PRN AT THIS TIME. PT REQUESTING PRN ANXIETY MEDICATION AFTER FAMILY IN ROOM VISITING. PT STATES THAT SHE HAD TO KICK HER FAMILY OUT BECAUSE THEY WERE MAKING HER ANXIOUS. PT STATES THAT SOB IS AT BASELINE. LUNG SOUNDS CLEAR IN UPPER LOBES BILATERALLY, AND COARSE IN BOTTOM LOBES BILATERALLY. PT ASSISTED TO PUT ON CPAP WITH O2 BLED IN. PT DENIES OTHER NEEDS AT THIS TIME. CALL LIGHT WITHIN REACH.
--- NOTE | 2017-07-24 23:26 | NUR ---
PT CALLED REQUESTING SOMETHING FOR AIR HUNGER, ADMINISTERED 7.5 MG MORPHINE. PT DENIES FURTHER NEEDS.
--- NOTE | 2017-07-24 23:45 | NUR ---
PT LYING IN BED WITH EYES OPEN. PT REPORTS THAT HER BREATHING IS MUCH BETTER AFTER MS DOSE. PT DENIES OTHER NEEDS, CPAP IN PLACE APPROPRIATELY. CALL LIGHT WITHIN REACH.
--- NOTE | 2017-07-25 02:43 | NUR ---
ASSISTED PATIENT TO THE BATHROOM AND BACK TO BED. GAVE NEW HOT PACK. CALL LIGHT WITHIN REACH. NO OTHER NEEDS AT THE MOMENT.
--- NOTE | 2017-07-25 04:38 | NUR ---
PT RESTING IN BED WITH EYES CLOSED. RESPIRATIONS EVEN AND UNLABORED. PT APPEARS TO BE SLEEPING. CPAP MASK IN PLACE APPROPRIATELY. PT DOES NOT WAKE WHILE RADIO PERSONALITY IN DOORWAY. CALL LIGHT WITHIN REACH.
--- NOTE | 2017-07-25 05:45 | NUR ---
PT SLEPT MAJORITY OF SHIFT. ANXIETY X 1 XANAX ADMINISTERED. SOB X1, MS ADMINISTERED. PT ON 2 LPM OF O2, OXYMASK VS NC. CPAP @ NOC. SBA TO BATHROOM. DAILY WEIGHT. NO IV ACCESS.
--- NOTE | 2017-07-25 07:50 | NUR ---
PATIENT WAS OFFERED A SHOWER TODAY. PATIENT REFUSED AND STATED THAT SHE HAD ONE YESTERDAY. PATIENT REFUSED TO SIT UP IN CHAIR FOR BREAKFAST. HANDS AND FACE WASHED. CALL BUTTON IN REACH.
--- NOTE | 2017-07-25 09:07 | NUR ---
PATIENT WORKING WITH OCCUPATIONAL THERAPY NOW.
--- NOTE | 2017-07-25 14:19 | NUR ---
PT CALLS APPROPRIATELY TO BE ASSISTED/SUPERVISED WITH AMBULATING TO BATHROOM.
--- NOTE | 2017-07-25 17:49 | NUR ---
THIS LEADERSHIP COACH ASSISTED PATIENT BACK TO BED FROM BATHROOM. PATIENT SITTING UP EATING DINNER, CALL LIGHT IN REACH. NO OTHER NEEDS AT THIS TIME.
--- NOTE | 2017-07-25 18:26 | NUR ---
SWING BED. LIKELY HOME MONDAY. WORKING WITH PT/OT. CPAP WITH SLEEP. 2L 02 VIA OXYMASK OR NC. DAILY WEIGHT. TYLENOL X2 AND MORPHINE X1. WOULD LIKE TO HAVE ALPRAZOLAM @ 1930 AND MORPHINE AT 2100 TONIGHT TO HELP WITH ANXIETY AND SLEEP. SMALL MEALS THROUGHOUT THE DAY.
--- NOTE | 2017-07-25 19:15 | NUR ---
IN ROOM FOR REPORT, PT IS AWAKE IN BED WITH VISITORS IN THE ROOM. SHE DENIES NEEDS AT THIS TIME. CALL LIGHT IS WITHIN REACH.
--- NOTE | 2017-07-25 20:17 | NUR ---
ROUNDED CHARGE. PATIENT IS REQUESTING ANXIETY MEDICATION. ANXIETY MEDICATION PRN GIVEN PER ORDER. PATIENT HAS FAMILY AT THE BEDSIDE. NO COMMENTS, QUESTIONS, OR CONCERNS. NO FURTHER NEEDS NOTED. CALL LIGHT IN REACH. CHAIR PROVIDED FOR FAMILY.
--- NOTE | 2017-07-25 21:35 | NUR ---
IN ROOM TO ASSESS PT AND ADMINISTER EVENING MEDICATIONS. PT STATES SHE IS TIRED AND READY FOR BED. HELPED PT TO THE RESTROOM AND BACK TO BED. PT HAS A WARM PACK ON HER NECK AT THIS TIME BUT NO COMPLAINTS OF PAIN. SHE IS ON 2LNC AND CPAP HAS O2 ATTACHED AND IS READY FOR HER TO PUT IT ON WHEN SHE DECIDES TO SLEEP. PT DENIES FURTHER NEEDS AT THIS TIME.
--- NOTE | 2017-07-25 22:04 | NUR ---
STANDBY ASSISTED PATIENT TO THE BATHROOM AND BACK TO BED. WARM PACK PROVIDED. CALL LIGHT WITHIN REACH. NO OTHER NEEDS AT THIS TIME.
--- NOTE | 2017-07-25 23:47 | NUR ---
PT IS RESTING WITH EYES CLOSED, RESPIRATIONS ARE EVEN AND NONLABORED ON CPAP/2LO2. CALL LIGHT IS WITHIN REACH.
--- NOTE | 2017-07-26 00:47 | NUR ---
PT IS RESTING WITH EYES CLOSED, RESPIRATIONS ARE EVEN AND NONLABORED ON CPAP WITH O2. CALL LIGHT IS WITHIN REACH.
--- NOTE | 2017-07-26 03:32 | NUR ---
PT IS RESTING WITH EYES CLOSED, RESPIRATIONS ARE EVEN AND NONLABORED.
--- NOTE | 2017-07-26 04:53 | NUR ---
PT SLEPT WELL ON CPAP WITH 2LO2. SHE IS ON 2LNC CHRONIC. DAILY WEIGHT WAS 123.4. POSSIBLE DC ON MONDAY WITH HOME PT. PT HAD MORPHINE LAST NIGHT FOR AIR HUNGER AND ALPRAZOLAM FOR ANXIETY.
--- NOTE | 2017-07-26 05:58 | NUR ---
PT IS RESTING WITH EYES CLOSED, RESPIRATIONS ARE EVEN AND NONLABORED WITH CPAP/O2 ON. CALL LIGHT IS WITHIN REACH.
--- NOTE | 2017-07-26 07:20 | NUR ---
BEDSIDE HANDOFF REPORT RECEIVED FROM CAREER PROFESSIONAL RN. PT IN BATHROOM, NURSE AIDE IN ROOM.
--- NOTE | 2017-07-26 07:28 | NUR ---
THIS INSPECTOR AIDE ASSISTED PATIENT UP TO BATHROOM. PATIENT WASHED DOWN AT SINK AND PERFORMED ORAL CARE. PATIENT BACK IN BED, LINENS CHANGED. PATIENT REFUSED SHOWER. CALL LIGHT IN REACH. NO OTHER NEEDS AT THIS TIME.
--- NOTE | 2017-07-26 08:33 | NUR ---
PT SITTING ON EDGE OF BED, EATING BREAKFAST. PT DENIES PAIN. AGRICULTURE INSTRUCTOR TO BEDSIDE FOR MORNING INHALERS, PT ON 2L NC, LUNG SOUNDS CLEAR WITH DIMINIHSED RIGHT AND DIMINISHED LEFT LOWER, O2 SATS 92%. PT DENIES NAUSEA, BOWEL TONES ACTIVE. CMS INTACT, 1+ EDEMA TO BLE, PULSES PALPABLE. PT WIHTOUT IV ACCESS. DISCUSSED PLAN OF CARE FOR THE DAY. PT REQUESTING MORPHINE BEFORE PHYSICAL THERAPY, COORDINATED WITH PHYSICAL THERAPIST. PT DENIES OTHER NEEDS AT THIS TIME.
--- NOTE | 2017-07-26 09:00 | NUR ---
PER PHYSICAL THERAPY AND PATIENT REQUEST, 7.5 MG PO MORPHINE GIVEN FOR SOB BEFORE PHYSICAL THERAPY. PT DENIES OTHER NEEDS AT THIS TIME.
--- NOTE | 2017-07-26 10:40 | NUR ---
PT RESTIGN IN BED, SLEEPING, LEFT UNDISTURBED. OXYMASK IN PLACE.
--- NOTE | 2017-07-26 10:48 | NUR ---
PATIENT WORKING WITH PT. NO OTHER NEEDS AT THIS TIME.
--- NOTE | 2017-07-26 11:05 | NUR ---
PT ALERT AND ORIENTED, PREPPING FOR DC TOMORROW. PT MENTIONED THAT HER SONS WERE DEALING WITH HER HEALTH ISSUES MORE HONESTLY, AND SEEM TO UNDERSTAND HER SITUATION BETTER. MOSTLY, ESPECIALLY AUBREE FEARED LOSING HIS MOTHER. IT WAS DIFFICULT ENOUGH WITH THE PASSING OF HIS FATHER-ONE MENTIONED THE TERM "ORPHAN" AND THAT SEEMED TO UNDO HIM. P.T. IN, AND SEEEMED TO BE ON A TIME CONSTRAINT, SO I WILL CONTINUE ANOTHER TIME. EXTENDED A BLESSING, PT THANKED ME.
--- NOTE | 2017-07-26 12:45 | NUR ---
PT RESTING IN BED. PT STATES SHE ATE ALL OF HER LUNCH. PT DENIES OTHER NEEDS AT THIS TIME.
--- NOTE | 2017-07-26 12:56 | NUR ---
THIS DIFFUSION OPERATOR ASSISTED PATIENT UP TO BATHROOM, BACK TO BED. PATIENT RESTING, VISITORS IN ROOM. CALL LIGHT IN REACH. NO OTHER NEEDS AT THIS TIME.
--- NOTE | 2017-07-26 13:42 | NUR ---
PATIENT WITH COMPLAINTS OF A HEADACHE, ADMINISTERED TYLENOL 650MG PRN. WILL REASSESS.
--- NOTE | 2017-07-26 14:13 | NUR ---
PATIENT RESTING IN BED, FAMILY IN ROOM, CALL LIGHT IN REACH, NO OTHER NEEDS AT THIS TIME.
[2017-07-26] MEDS ORDERED: VENTOLIN HFA18 GM INH (15:35)
--- NOTE | 2017-07-26 15:48 | NUR ---
PT CALLED [facility] TO REQUEST PAIN COVERAGE PHYSICAL THERAPY IS READY TO WORK WITH HER. MORPHINE PO 7.5MG GIVEN PRN. PT REPORTS PAIN 5/10 AT THIS TIME
[2017-07-26] MEDS ORDERED: TORSEMIDE20 MG PO (15:52)
--- NOTE | 2017-07-26 15:58 | NUR ---
PATIENT CALLED REQUESTING MORPHINE TO WORK WITH PT. RN NOTIFIED. NO OTHER NEEDS AT THIS TIME.
[2017-07-26] MEDS ORDERED: MIRALAX17 GM PO (16:00)
[2017-07-26] MEDS ORDERED: KLOR-CON 1010 MEQ PO (16:02)
[2017-07-26] MEDS ORDERED: IPRAT-ALBUT 0.5-3 ML INH (16:13)
--- NOTE | 2017-07-26 17:33 | NUR ---
PATIENT SITTING UP IN BED, EATING DINNER. PATIENT CALL LIGHT IN REACH, NO OTHER NEEDS AT THIS TIME.
--- NOTE | 2017-07-26 18:09 | NUR ---
PT RESTIGN IN BED. PT GIVEN POTASSIUM PO PER ORDER. PT DENIES OTHER NEEDS AT THIS TIME.
--- NOTE | 2017-07-26 18:14 | NUR ---
PT WORKED WITH PHYSICAL THERAPY TODAY, ABLE TO AMBULATE IN STRAUSS. PT RECEIVED PRN NEB X1. MORPHINE GIVEN FOR SOB X2. PT ON 2L NC, O2 SATS 92%, LUNG SOUNDS CLEAR BUT DIMINISHED. PT SBA TO AMBULATE. BETTER APPETITE, TOLERATING CARDIAC DIET. NO IV ACCESS. VOIDING QS. PT SHOULD DISCHARGE TOMORROW.
--- NOTE | 2017-07-26 19:32 | NUR ---
MEDICATED WITH XANAX 0.125MG PO C/O ANXIETY
--- NOTE | 2017-07-26 20:51 | NUR ---
ROUNDED CHARGE. PATIENT IS RESTING IN BED WITH OXY MASK IN PLACE. PATIENT DENIES ANY COMMENTS, QUESTIONS, OR CONCERNS. NO NEEDS NOTED. CALL LIGHT IN REACH.
--- NOTE | 2017-07-27 00:55 | NUR ---
HELPED PT TO THE BATHROOM AND BACK TO BED. WARM BLANKET GIVEN. BEDSIDE TABLE AND CALL LIGHT WITHIN REACH.
--- NOTE | 2017-07-27 00:58 | NUR ---
PER PT REQUEST I GOT HIM SOME OJ AND A CUP OF ICE. PT NEEDS NOTHING ELSE AT THIS TIME. CALL LIGHT WITHIN REACH.
--- NOTE | 2017-07-27 05:51 | NUR ---
CURRENTLY RESTING, EYES CLOSED. PT REQUIRES ONE PERSON ASSIST TO BRP, HAS VOIDED QS. NO BM SINCE 07/24, RECEIVED SENNA TABS. FLUIDS ENCOURAGED. PT RECEIVED XANAX FOR ANXIETY AND MORPHINE 7.5MG PO C/O [place]. EFFECTIVE. USES O2 2LNC/OXYMASK AND CPAP AT HS. HAS AN EDEMATOUS FLUID FILLED AREA LOW RIGHT INNER CALF, AREA MARKED, UNKNOWN CAUSE. ELEVATED. PT LOOKING FORWARD TO POSSIBLE DC THIS AM.
--- NOTE | 2017-07-27 06:50 | NUR ---
DAILY WEIGHT DONE AND CHARTED. STOOD BY WHILE PT WENT TO THE BATHROOM AND BACK TO BED. EMPTIED GARBAGES. BEDSIDE TQABLE AND CALL LIGHT WITHIN REACH. PT NEEDS NOTHING ELSE AT THIS TIME.
--- NOTE | 2017-07-27 07:10 | NUR ---
BEDSIDE REPORT FROM FELIX RN, PT RESTING IN BED ALERT NO REQUESTS AT THIS TIME. NO DISTRESS NOTED
--- NOTE | 2017-07-27 10:23 | NUR ---
PHYSICAL THERAPY IN PT ROOM TO WORK WITH HER ON TRANSFERING AT THIS TIME.
--- NOTE | 2017-07-27 11:30 | NUR ---
REPORT RECEIVED FROM SOHA. ASSUMING PATIENT'S CARE AT THIS TIME. PATIENT SITTING AT BEDSIDE ON 2L OF 02. REPORTS MILD SOB. PATIENT DENIES PAIN AT THIS TIME.
--- NOTE | 2017-07-27 11:45 | NUR ---
PT ASKED LEATHER HEEL BREASTER IF SHE COULD NOTIFY RN OR PHARMACY IN [place] IF IT IS SAFE TO TAKE ONLY A HALF DOSE OF XANAX AT NIGHT SHE FEELS OVER SLEEPY DURING THE DAY. THIS RN DISCUSSED THIS WITH , HE SAID THAT IS FINE IF SHE WANTS TO TAKE LESS OR NOT TAKE AT ALL, AND TRY NOT TO TAKE AT SAME TIME MORPHINE. EDUCAITON PROVIDED TO PT AND WILL BE WRITTEN DISCHARGE PACKET.
--- NOTE | 2017-07-27 11:51 | NUR ---
REPORT GIVEN TO NILSA LACY AT THIS TIME
--- NOTE | 2017-07-27 12:20 | NUR ---
PO K+ GIVEN. PATIENT DENIES PAIN AT THIS TIME, STILL ON 2L VIA NC. DISCHARGE INSTRUCTION GIVEN TO PATIENT AND HER DAUGTHER. ALL QUESTIONS ANSWERED. ALL HOME MEDS RETURNED TO PATIENT. DOMI RESTREPO WAS IN ROOM FOR MED EDUCATION.
--- NOTE | 2017-07-27 14:41 | NUR ---
VISITED WITH PT A MOMENT SHE WAS WALKING IN THE [place] WITH P.T. CONNECTED AGAIN IN WITH PT. SHE WAS RECOVERING FROM P.T., FEELING GOOD ABOUT THE START TO HER DAY. PT IS TO BE DC'D TODAY-SHE STILL HAS SOME APPREHENSIONS ABOUT GOING HOME. HAD PRAYER WITH PT, SHE THANKED ME. WILL FOLLOW NEEDED
--- NOTE | 2017-07-28 10:27 | NUR ---
FAXED CHART NOTES TO [facility] FOR PT FOR PT, OT, AND RN CARE IN HOME. TALKED WITH DEVI RN IN HOME HEALTH. FAXED FACESHEET, ORDER, H AND P, DC SUMMARY. RECIEVED FAX CONFIRMATION. THIS WAS FAXED 07/27/17
== END 2017-07-27 13:00 | disposition home health service (06) | DRG 556 ==
LOC: MS 10:18
PROVIDERS: ADMIT Internal Medicine
DX: M62.81 Muscle weakness (generalized) (principal); I50.32 Chronic diastolic (congestive) heart failure; J96.11 Chronic respiratory failure with hypoxia; I11.0 Hypertensive heart disease with heart failure; I50.84 End stage heart failure; J44.9 Chronic obstructive pulmonary disease, unspecified; Z51.5 Encounter for palliative care; F41.9 Anxiety disorder, unspecified; G47.33 Obstructive sleep apnea (adult) (pediatric); I07.1 Rheumatic tricuspid insufficiency; I27.20 Pulmonary hypertension, unspecified; F32.9 Major depressive disorder, single episode, unspecified; I48.0 Paroxysmal atrial fibrillation; I73.9 Peripheral vascular disease, unspecified; Z66 Do not resuscitate; Z87.891 Personal history of nicotine dependence; Z99.81 Dependence on supplemental oxygen; Z88.8 Allergy status to other drugs, medicaments and biological substances; Z79.02 Long term (current) use of antithrombotics/antiplatelets; Z79.82 Long term (current) use of aspirin; Z79.51 Long term (current) use of inhaled steroids; Z79.899 Other long term (current) drug therapy
CPT/HCPCS: 36415; 71046; 80048; 83880; 85025; 94640; 94760; 97110; 97112; 97116; 97162; 97166; 97530; 97535

== ENCOUNTER 2017-08-08 14:34 | Emergency (ER) | payer MEDICARE, OTHER ==
[~2017-08-08] VITALS: Ht 162.6 cm; Wt 56.3 kg
[~2017-08-08 14:34] MED LIST changes: +ADULT ASPIRIN81 MG PO; +BUTALB-ACETAMI1 EACH PO; +FLONASE ALLERG9.9 ML NAS; +IPRAT-ALBUT 0.5-3 ML INH; +KLOR-CON 1010 MEQ PO; +MIRALAX17 GM PO; +MORPHINE SULFAT15 MG PO; +SENOKOT-S TABL1 EACH PO; +XANAX0.25 MG PO
--- NOTE | 2017-08-09 08:49 | EKG ---
[facility] [address] [facility] [place] [address] Signed Atrial fibrillation with rapid ventricular response Rightward axis Nonspecific ST and T wave abnormality Abnormal ECG When compared with ECG of 05-JUL-2017 15:36, Vent. rate has increased BY 45 BPM Nonspecific T wave abnormality has replaced inverted T waves in Inferior leads T wave inversion no longer evident in Lateral leads Confirmed by ANA ZUNIGA MD ([id number]) on 08/09/2017 8:49:11 AM Electronically Signed By: ANA ZUNIGA MD 08/09/17 0849 PATIENT NAME: TOD COWART Electrocardiogram DATE OF : 39 PHYSICIAN: ANA ZUNIGA MD REPORT #: [id number] REPORT IS CONFIDENTIAL AND NOT TO BE RELEASED WITHOUT AUTHORIZATION
== END 2017-08-08 16:50 | disposition home or self-care (01) ==
LOC: ED 14:34
DX: S80.11XA Contusion of right lower leg, initial encounter (principal); N28.9 Disorder of kidney and ureter, unspecified; I13.0 Hypertensive heart and chronic kidney disease with heart failure and stage 1 through stage 4 chronic kidney disease, or unspecified chronic kidney disease; N18.9 Chronic kidney disease, unspecified; I50.9 Heart failure, unspecified; J44.1 Chronic obstructive pulmonary disease with (acute) exacerbation; E87.5 Hyperkalemia; I48.91 Unspecified atrial fibrillation; Z88.6 Allergy status to analgesic agent; Z88.8 Allergy status to other drugs, medicaments and biological substances; Z79.01 Long term (current) use of anticoagulants; W01.0XXA Fall on same level from slipping, tripping and stumbling without subsequent striking against object, initial encounter
CPT/HCPCS: 71045; 73590; 80053; 81001; 83880; 84484; 85025; 85610; 85730; 93005; 93010; 96374; 99284; J2930

== ENCOUNTER 2020-09-25 10:54 | Emergency (ER) | payer MEDICARE, OTHER ==
[~2020-09-25] VITALS: Ht 162.6 cm; Wt 59.0 kg
--- OUTSIDE RECORDS SUMMARY | 2020-09-25 10:56 | XMS ---
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 Milind has no Care Guidelines for this patient. Kerry VISIT COUNT (12 MO.) 1 ARIELLE Wilkinson TOTAL 1 NOTE: Visits indicate total known visits. ED/UCC VISIT TRACKING (12 MO.) 09/25/2020 10:54 ARIELLE Brito [place] TYPE: Emergency COMPLAINT: - DIFFICULTY BREATHING INPATIENT VISIT TRACKING (12 MO.) No inpatient visits to display in this time frame [email or web address]
--- NOTE | 2020-09-25 12:48 | EKG ---
[facility] [address] [facility] [place], [place] [address] Signed Atrial fibrillation with rapid ventricular response Rightward axis ST \T\ T wave abnormality, consider inferior ischemia Abnormal ECG When compared with ECG of 08-AUG-2017 14:51, No significant change was found Confirmed by HERACLIO LUND DO ([id number]) on 09/25/2020 12:48:23 PM Electronically Signed By: HERACLIO LUND DO 09/25/20 1248 PATIENT NAME: TOD COWART Electrocardiogram DATE OF : 39 PHYSICIAN: HERACLIO LUND DO REPORT #: [id number] REPORT IS CONFIDENTIAL AND NOT TO BE RELEASED WITHOUT AUTHORIZATION
[2020-09-25] MEDS ORDERED: PREDNISONE20 MG PO (13:22)
[2020-09-25] MEDS ORDERED: VENTOLIN HFA18 GM INH (13:22)
[2020-09-25] MEDS ORDERED: TESSALON PERLE100 MG PO (13:22)
== END 2020-09-25 13:39 | disposition home or self-care (01) ==
LOC: ED 10:54
DX: J44.9 Chronic obstructive pulmonary disease, unspecified (principal); I48.91 Unspecified atrial fibrillation; I10 Essential (primary) hypertension; Z87.891 Personal history of nicotine dependence; Z88.8 Allergy status to other drugs, medicaments and biological substances; Z88.6 Allergy status to analgesic agent; Z79.899 Other long term (current) drug therapy; Z79.82 Long term (current) use of aspirin; Z20.822 Contact with and (suspected) exposure to COVID-19
CPT/HCPCS: 71045; 80048; 84484; 85025; 93005; 93010; 94640; 96374; 96375; 99285-25; C9803; J1100; J1940; U0003

== ENCOUNTER 2022-01-21 02:05 | Inpatient (IN) | payer MEDICARE, OTHER ==
[~2022-01-21] VITALS: Ht 162.6 cm; Wt 59.0 kg
[~2022-01-21 02:05] MED LIST changes: +ESCITALOPRAM OX10 MG PO; +PSEUDOEPHEDRINE30 MG PO; +TESSALON PERLE100 MG PO; -XANAX0.25 MG PO; +XANAX0.5 MG PO; +ZINC50 MG PO
--- OUTSIDE RECORDS SUMMARY | 2022-01-21 02:08 | XMS ---
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 Milind has no Care Guidelines for this patient. Kerry VISIT COUNT (12 MO.) [address] May Bullock 2 ARIELLE Wilkinson TOTAL 3 NOTE: Visits indicate total known visits. 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
--- NOTE | 2022-01-21 04:35 | NUR ---
pt ARRIVED TO MEDSURG FLOOR FROM ED, pt SELF TRANSFERRED TO MS BED, 3LOXYMASK IN PLACE. 3LNC CHRONIC FOR pt. RN AFSHIN COMPLETING ADMISSION AND PRIMARY RN KARLA IN ROOM FOR ADMISSION.
--- NOTE | 2022-01-21 05:00 | NUR ---
IN ROOM FOR ASSESSMENT, ASSISTING PT TO RESTROOM, AND RISK MANAGEMENT INTERNSHIP. PT LUNGS ARE DIMINISHED THROUGHOUT WITH EXP WHEEZING IN UPPER LOBES AND COARSE. PT FREQUENT UNPRODUCTIVE COUGH. PT ON 3 L 02 VIA OXIMASK (CHRONIC AT HOME PER PT). VSS. TELEMETRY IN PLACE. BOWEL TONES ACTIVE X4. PT REPORTS NO PAIN, NAUSEA, DIZZINESS, N/T AT THIS TIME. PT STEADY GAIT WITH AMBULATION. PT ABLE TO MOVE SELF IN BED, NO SIGNS OF SKIN BREAKDOWN. CALL LIGHT WITHIN REACH, NO FURTHER NEEDS AT THIS TIME. PT IS ALERT AND ORIENTED X4.
--- NOTE | 2022-01-21 05:43 | NUR ---
SPOKE TO JANELLE IN TELEPHARMACY REGARDING SCHEDULED AM IV SOLU-MEDROL. pt RECEIVED LAST DOSE AT 0230 AND ORDERED TO BE GIVEN Q8H, NEXT DOSE TO BE GIVEN AT 0600. JANELLE TO RETIME.PRIMARY RN KARLA CASTRO.
[2022-01-21] MEDS ORDERED: SPIRIVA18 MCG INH (07:14)
[2022-01-21] MEDS ORDERED: ALENDRONATE SOD70 MG PO (07:17)
[2022-01-21] MEDS ORDERED: RIZATRIPTAN10 MG PO (07:19)
[2022-01-21] MEDS ORDERED: SYMBICORT 16010.2 GM INH (07:20)
--- NOTE | 2022-01-21 08:45 | NUR ---
Attempted to see pt, she is sleeping and does not awaken to voice.
[2022-01-21] MEDS ORDERED: VENTOLIN HFA18 GM INH (09:14)
[2022-01-21] MEDS ORDERED: TORSEMIDE20 MG PO (09:16)
--- NOTE | 2022-01-21 09:17 | NUR ---
MED REC COMPLETE
--- NOTE | 2022-01-21 09:19 | NUR ---
Tylenol 650mg po admin at this time for generalized pain/aches.
--- NOTE | 2022-01-21 09:30 | NUR ---
Patient resting in bed eating breakfast, no acute distress. Patient is on 3L oxygen per oxymask which pt reports chronic use at home of 3L oxygen. Patient reports her shortness of breath has improved a bit since admit. Patient tolerated 50% oh her breakfast. Morning medications admin per schedule. Patient has no needs at this time. Patient instructed to call staff when she has need, pt receptive. Call light within reach of patient.
[2022-01-21] MEDS ORDERED: ESCITALOPRAM OX10 MG PO (12:29)
--- NOTE | 2022-01-21 14:02 | NUR ---
Was able to speak with Dr. Agrawal and update to my conversation with Jacquie.
--- NOTE | 2022-01-21 15:00 | NUR ---
Patient up to void at this time. Patient remains on 3L oxygen per nc, sp02 94% at this time. Patient remains short of breath with activity. Patient calling staff appropriately with needs. Patient back to bed at this time. Call light within reach.
--- NOTE | 2022-01-21 17:25 | NUR ---
PATIENT REMAINS ON 3L OXYGEN THROUGHOUT THIS SHIFT WHICH IS CHRONIC FOR HER. PATIENT REPORTS SOB WITH EXERTION; SP02 92-95%. PT DENIES CHEST PAIN THIS SHIFT. SBA TO BR. BEAL; TELE-HR 80'S, TAKES ELIQUIS DAILY. CONT SP02 MONITORING. TOLERATING PO INTAKE WELL. ADEQUATE URINE OUTPUT. ANKLE EDEMA IMPROVING. PT CALLS STAFF APPROP.
--- NOTE | 2022-01-21 17:27 | NUR ---
REPORT RECEIVED FROM BAMBI NAJERA. THIS RN ASSUMING CARE OF PT. PT RESTING IN BED, TRYING TO EAT DINNER. PT REPORTS "I CAN'T EAT THIS." NEW DINNER ORDER PLACED FOR PT. STAND BY ASSIST UP TO CHAIR FOR DINNER. APPLE SAUCE PROVIDED PER PT REQUEST WHILE SHE WAITS FOR HER NEW DINNER. OXGYEN SATURAION 96% ON 3L O2 BY NC PER PTS PBASELINE. AFIB RYTHEM NOTED ON MONITOR WITH RATE OF [address] WEIR CALLED REGARDING GORDON PATCH THAT IS STILL IN PLACE, DR WEIR STATES TO REMOVE GORDON PATCH AT THIS TIME. PATCH REMOVED. WARM BLANKETS PROVIDED. PT DENIES ADDITIONAL REQUESTS OR COMPLAINTS. CALL LIGHT WITHIN REACH. PT ASSISTED WITH FINDING THE NEWS ON THE TV.
--- NOTE | 2022-01-21 17:49 | NUR ---
PT CALL LIGHT ON. PT REQUESTS ASSISTANCE UP TO RESTROOM. STAND BY ASSIST FOR LINE AND TUBE MANAGEMENT UP TO RESTROOM. PT VOIDS WITHOUT ISSUE AND PERFORMS SELF TERRIE CARE. STAND BY ASSIST BACK TO CHAIR. 2ND DINNER DELIVERED TO PT. PT EATING DINNER. PT DENIES PAIN AND NASUEA. LUNG SOUNDS ASSESSED, CLEAR IN UPPER LOBES, EXPRIATORY WHEEZE NOTED IN BASES. LUNG SOUNDS TIGHT THROUGHOUT. OXGYEN SATURATION REMAINS 95% ON PTS BASELINE 3L O2 BY NC. DRY COUGH NOTED AT TIMES. NO ADDITIONAL REQUESTS OR COMPLAINTS. CALL LIGHT WITHIN REACH.
--- NOTE | 2022-01-21 19:15 | NUR ---
RECIEVED REPORT FROM CODY LACY. PT ALERT AND WATCHING TV IN BED. CALL LIGHT WITHIN REACH, NO NEEDS AT THIS TIME.
--- NOTE | 2022-01-21 21:00 | NUR ---
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 PT IS RESTING IN BED W/3L O2 VIA NC, PT REQUESTED OXIMASK FOR COMFORT, OXIMASK NOW IN PLACE. LUNGS ARE DIMINISHED THROUGHOUT WITH EXPIRATORY WHEEZES IN UPPER LOBES. PT STATES SHE HAS NOT EXPERIENCED ANY SOB OR CHEST PAIN. PAIN CURRENTLY 0/10. RHYTHM IS IRREGULAR IN RADIAL PULSE AND VIA APICAL PULSE. MINIMAL 1+ EDEMA IN BLE, SKIN IS WARM/DRY/FRAGILE. PT REPORTS NO DIZZINESS, NAUSEA, OR N/T. BOWEL TONES ACTIVE X4. CUP OF ICE PROVIDED FOR DRY MOUTH. CALL LIGHT WITHIN REACH, NO FURTHER NEEDS AT THIS TIME.
--- NOTE | 2022-01-21 21:43 | NUR ---
IN ROOM TO PUT O2 FINGER SENSOR BACK ON PT FINGER, PT IS LAYING ON RT SIDE WITH EYES CLOSED. RESPIRATIONS ARE EVEN AND UNLABORED, NO SIGNS OF DISTRESS. O2 IS 96% ON 3L OXIMASK. NO FURTHER NEEDS AT THIS TIME.
--- NOTE | 2022-01-21 21:51 | EKG ---
[facility] [address] [facility] [place] [address] Signed Atrial fibrillation with rapid ventricular response Rightward axis ST \T\ T wave abnormality, consider inferior ischemia Abnormal ECG When compared with ECG of 25-OCT-2021 09:07, Vent. rate has increased BY 52 BPM Confirmed by GHADA WEIR MD ([id number]) on 01/21/2022 9:51:38 PM Electronically Signed By: GHADA WEIR MD 01/21/222150 PATIENT NAME: SOFYATOD POST Electrocardiogram DATE OF : 39 PHYSICIAN: GHADA WEIR MD REPORT #: [id number] REPORT IS CONFIDENTIAL AND NOT TO BE RELEASED WITHOUT AUTHORIZATION
--- NOTE | 2022-01-21 23:30 | NUR ---
IN ROOM FOR MUTUAL FUND ANALYST. PT TOLERATED WELL. IV FLUSHED WELL WITH BRISK BLOOD RETURN. ASSISTED PT W/AMBULATION VIA STANDBY ASSIST TO THE BATHROOM. IN BATHROOM PT STATED BLOOD ON FLOOR. IV HAD LEAKED, REMOVED AND GAUZE AND COBAN IN PLACE. NEW IV PLACED IN LEFT FA. PT TOLERATED WELL, BRISK BLOOD RETURN AND FLUSHES WELL. PT NOW RESTING IN BED W/OXIMASK ON AT 3L W/O2 SATS AT 98%. CALL LIGHT WITHIN REACH, NO FURTHER NEEDS AT THIS TIME.
--- NOTE | 2022-01-22 00:29 | NUR ---
ANSWERED PT CALL LIGHT D/T INABILITY TO SLEEP. PT STATED SHE TAKES XANAX AT HOME EVERY NIGHT FOR INABILITY TO SLEEP. PRN ALPRAZOLAM GIVEN (SEE EMAR). ASSISTED PT W/STANDBY ASSIST TO BATHROOM. PT REPORTS NO DIZZINESS AND MILD SOB W/AMBULATION. GAIT IS STEADY. CALL LIGHT WITHIN REACH, NO FURTHER NEEDS AT THIS TIME.
--- NOTE | 2022-01-22 01:51 | NUR ---
PT RESTING W/EYES CLOSED. RESPIRATIONS ARE EVEN AND UNLABORED, NO SIGNS OF DISTRESS. CALL LIGHT WITHIN REACH.
--- NOTE | 2022-01-22 03:30 | NUR ---
IN PT ROOM FOR REPLACING TELE BATTERY AND REPLACING CPOX PROBE ON PT FINGER. PERFORMED ASSESSMENT. PT STATES NO PAIN, SOB, N/T, OR DIZZINESS AT THIS TIME. NO ACUTE CHANGES FROM PREVIOUS ASSESSMENT. PT REMAINS ON 3L O2 VIA OXIMASK (FOR COMFORT). PT LUNGS ARE DIMINISHED THROUGHOUT W/EXPIRATORY WHEEZES. PT LAYING IN BED. CALL LIGHT WITHIN REACH, NO FURTHER NEEDS AT THIS TIME.
--- NOTE | 2022-01-22 06:16 | NUR ---
INFORMED BY RN AFSHIN THAT pt HAD SCATTERED WHEEZES. THIS RN TO pt DOOR, pt AWAKE AND RESTING IN BED, REPORTS SOME SOB. NO DISTRESS, HOB REMAINS ELEVATED. RT JOSH AWARE AND TO GIVE BREATHING TREATMENT. CALL LIGHT IN REACH.
--- NOTE | 2022-01-22 06:40 | NUR ---
CALL MADE TO DR WEIR REGARDING HR. PER CCU, HR ELEVATED AND IN THE 120'S FOR APPROX 20 MINUTES. pt ASYMPTOMATIC AND RESTING IN BED, RECENTLY GIVEN BREATHING TREATMENT. COFFEE REMOVED. TELEPHONE ORDERS READ BACK TO GIVE AM SCHEDULED ELIQUIS AND AM ZEBETA EARLY AND GIVE NOW.
--- NOTE | 2022-01-22 06:51 | NUR ---
PTS HEART RATE NOTED TO BE ELEVATED FROM 110-130'S. CCU CALLED AND STATES PT HAS HAD THIS MORE RAPID RATE FOR ABOUT [address] WEIR CALLED AND STATES TO GIVE ELEQUIS AND BISOPROLOL EARLY. VITALS TAKEN. MEDICATION GIVEN. PT ADVISED NOT TO DRINK MORE COFFEE UNTIL HER HEART RATE IMPROVES. PT VERBALIZES UNDERSTADING. PT DENIES CHEST PAIN OR PRESSURE. PT DOES REPORT SHORTNESS OF BREATH. OXGYEN SATURATION 94% ON BASELINE 3L O2 BY NC. PT DOES NOT APPEAR TO BE IN DISTRESS. NO ADDITONAL NEEDS AT THIS TIME. CALL LIGHT WITHIN REACH. BED RAILS UP.
--- NOTE | 2022-01-22 07:30 | NUR ---
Patient left the unit at this with DI.
--- NOTE | 2022-01-22 11:09 | NUR ---
Patient resting in bed watching tv, A&OX4. Patient denies shortness of breath at this time. SP02 trending 94+%, respirations 22-26 per minute. Per tele, HR 80-90's and irregular. Patient reports feeling better today, she is able to get up to restroom and back to bed independently. Patient denies pain this morning. No current needs, personal supplies and call light within reach.
--- NOTE | 2022-01-22 17:34 | NUR ---
Patient resting in bed, no distress. Patient's respirations even and non labored. Tele in place, sp02 95% on 3L oxygen per nc. Personal supplies and call light within reach.
--- NOTE | 2022-01-22 18:37 | NUR ---
THIS RN TO ROOM TO CHECK ON PT. PT RESTING IN BED, HEAD OF BED ELEVATED TO 25 DEGREES. PT REMAINS ON 3L O2 BY NC PER BASELINE OXGYEN SATRUATIONS OF 96%. HEART RATE OF 96 WITH AFIB RYTHEM. PT DENIES PAIN AND NAUSEA. PT DENIES NEED TO VOID. NO ADDITIONAL REQUESTS OR COMPLAINTS. CALL LIGHT WITHIN REACH. BED RAILS UP.
--- NOTE | 2022-01-22 19:18 | NUR ---
ANSWERED PATIENT'S CALL LIGHT SHE SAID THAT SOME OF HER STICKERS WERE FALLEN OFF. SO WHEN I WENT IN IT WAS THE STICKERS THAT THEY PUT ON FOR AN EKG. I SAID JUST THROW THEM IN THE GARBAGE.
--- NOTE | 2022-01-22 19:32 | NUR ---
RECIEVED REPORT FROM JAMIN LACY. PT RESTING IN BED ALERT AND ORIENTED X4 WATCHING TV. TELE3 IN PL[address] FUNCTIONING WNL. PT ON 3L O2 VIA NC, O2 IS 96%. CALL LIGHT WITHIN REACH, NO FURTHER NEEDS AT THIS TIME.
--- NOTE | 2022-01-22 21:10 | NUR ---
IN ROOM FOR PT ASSESSMENT AND CHROME POLISHER. PT RESTING IN BED ALERT AND ORIENTED X4. PT REPORTS NO PAIN, NAUSEA, N/T, DIZZINESS AT THIS TIME. PT TOLERATED CHROME POLISHER WELL W/WATER. PT HAS EXPIRATORY WHEEZING THAT IS AUDIBLE WITHOUT AUSCULTATION. LUNGS ARE DIMINISHED THROUGHOUT WITH EXPIRATORY WHEEZE IN BILAT LOWER BASES. PULSES ARE PRESENT THROUGHOUT, SKIN IS PINK/WARM/DRY, AND PT IS ABLE TO MOVE SELF IN BED AND BECOME INDEPENDENT IN ROOM. PT IS ON 3L NC OF O2 WITH O2 SATS >90%. VSS. CALL LIGHT WITHIN REACH, NO FURTHER NEEDS AT THIS TIME.
--- NOTE | 2022-01-23 00:18 | NUR ---
ANSWERED PT CALL LIGHT REQUESTING SOMETHING TO "KNOCK HER OUT". PT STATES SHE GOT NO SLEEP LAST NIGHT. EDUCATED PT ABOUT SIDE EFFECTS OF SOLU-MEDROL, OFFERED PT HOME MED ALPRAZALAM AND PT STATED "IT DIDN'T WORK" LAST NIGHT, SO PT REFUSED. CALLED CARMELLA HORAN, READ BACK VERBAL PHONE ORDERS FOR 25 MG BENEDRYL PO X1.
--- NOTE | 2022-01-23 03:15 | NUR ---
IN ROOM TO REPLACE TELEMETRY BATTERY. ASSISTED PT W/CHANGING FROM OXIMASK TO NC FOR GOING TO THE BATHROOM. PERFORMED ASSESSMENT. NO ACUTE CHANGES FROM PREVIOUS ASSESSMENT. LUNGS ARE DIMINISHED THROUGHOUT WITH EXPIRATORY WHEEZES IN [place]OHNNY, AND BILAT LOWER LOBES. PT REPORTS NO PAIN, NAUSEA, N/T, SOB, OR DIZZINESS. PT REMAINS ON 3L OXIMASK W/O2 SATS AT 99%. CALL LIGHT WITHIN REACH, NO FURTHER NEEDS AT THIS TIME.
--- NOTE | 2022-01-23 04:52 | NUR ---
NOTICED WEIGHT MONITORING IN PROGRESS NOTE D/T CHF HISTORY OF PT. SENT MESSAGE TO CARMELLA HORAN REGARDING ADDING OF DAILY WEIGHTS FOR PT.
--- NOTE | 2022-01-23 07:02 | NUR ---
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 PT TOLERATED WELL. PT REPORTS NO PAIN OR SOB AT THIS TIME. PT STATES SHE DIDN'T GET ANY SLEEP LAST NIGHT REGARDLESS OF BENEDRYL ADMIN. 3L O2 VIA OXYMASK BEING DELIVERED W/O2 SATS AT 99%. CALL LIGHT WITHIN REACH, NO FURTHER NEEDS AT THIS TIME.
--- NOTE | 2022-01-23 07:43 | NUR ---
PT RESTING EYES CLOSED AT TIME OF SHIFT REPORT. BREATHING EVEN AND UNLABORED [address] FRESH H20 TO BEDSIDE, CALL LIGHT IN REACH.
--- NOTE | 2022-01-23 09:07 | NUR ---
PT EATS 50% OF MORNING MEAL. DR WEIR IN TO SEE HER QUESTIONS ASKED AND ANSWERED, ANTICIPATE POSSIBLE DC TOMORROW. PT AGREES.
--- NOTE | 2022-01-23 09:54 | NUR ---
PT IN BED. VITALS AND IS AND OS COMPLETE. PT HAS NO NEEDS AT THIS TIME. CALL LIGHT WITHIN REACH.
--- NOTE | 2022-01-23 10:16 | NUR ---
PT RESTING IN BED AGREES SHE IS COMFORTABLE DENIES NEED OF ANYTHING AT THIS TIME
--- NOTE | 2022-01-23 11:30 | NUR ---
PT UP TO TOILET AMBULATES INDEPENDANTLY NO APPEARANCE OF INCREASED SOB, PT TALKING ON THE PHONE. TELE DC'D PER DR WEIR
--- NOTE | 2022-01-23 14:24 | NUR ---
PT RESTING EYES CLOSED AWAKENS TO SOUND OF THE DOOR. AGREES SHE IS COMFORTABLE, DENIES NEEDS OF
--- NOTE | 2022-01-23 16:07 | NUR ---
PT TALKING ON THE PHONE, DENIES NEEDS OF
--- NOTE | 2022-01-23 19:59 | NUR ---
PATIENT RESTING BACK IN BED. INDEPENDANT IN ROOM. FULL BODY ASSESMENT DONE. APPEARS CALM. DISCUSSED PLAN FOR SLEEP, PLAN TO ADMINISTER SLEEPING MEDICATINS WITH [facility] MEDICAITONS. NO OTHER NEEDS AT THIS TIME. CALL LIGHT WITHIN REACH. HAS CARE DONE.
--- NOTE | 2022-01-24 00:49 | NUR ---
PATIENT AWAKE, DENIES ANY NEEDS AT THIS TIME. NO COMPLAINTS OF PAIN. OXIMASK ON 2L NC. CALL LIGHT WTIHIN REACH.
--- NOTE | 2022-01-24 02:30 | NUR ---
PATIENT RESTING IN BED WITH EYES CLOSED. APPEARS TO HAVE NO NEEDS AT THIS TIME.
--- NOTE | 2022-01-24 04:42 | NUR ---
PATIENT RESTING WITH EYES CLOSED. APPEARS TO BE BREATHING WELL. 2L OXIMASK 95% 02 SAT. PATIENT HAS BEEN UP TO BATHROOM, VOIDING WELL. PATIENT STATES " I AM READY TO DISCHARGE AND SLEEP IN MY OWN BED". PROVIDED PATIENT WITH FRESTH ICE WATER. CALL LIGHT WITHIN REACH.
--- NOTE | 2022-01-24 07:18 | NUR ---
PT AWAKE AND INTERACTIVE AT TIME OF SHIFT EXCHANGE. BREATHING EVEN AND UNLABORED [address] AGREES SHE IS COMFORTABLE AND STATES SHE HOPES TO GO HOME TODAY. CALL LIGHT AT BEDSIDE, FRESH H20 IN REACH.
--- NOTE | 2022-01-24 08:15 | NUR ---
Spoke with pt and she plans on return to [facility] today. Discussed needs and pt will need clothing, portable 02 tank, and walker at discharge. She asks I call her daughter in law, Rose, as she will pick her up. She lives at [facility] in a rented apartment, they also provide meals. There are no caregiving services provided. Pt denies needs, her 02 is through [facility]. 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
--- NOTE | 2022-01-24 08:34 | NUR ---
PT UP ON EDGE OF BED COMPLETES MOST OF MORNING MEAL. STATES SHE FEELS BETTER THAN YESTERDAY, HOPES TO GO HOME. DENIES NEEDS AT THIS TIME, CALL LIGHT IN REACH.
--- NOTE | 2022-01-24 08:58 | NUR ---
DR WEIR IN TO SEE PT AGREES TO DC TODAY. INSTRUCTIONS AND EXPECTATIONS DISCUSSED ALL QUESTIONS ANSWERED
--- NOTE | 2022-01-24 09:04 | NUR ---
PT IN BED. IS AND OS COMPLETE. NO FURTHER NEEDS. CALL LIGHT WITHIN REACH.
[2022-01-24] MEDS ORDERED: OSELTAMIVIR PHO30 MG PO (09:06)
--- NOTE | 2022-01-24 10:07 | NUR ---
DC INSTRUCTIONS GIVEN TO PT AND DAUGHTER IN LAW. ALL QUESTIONS ANSWERED. PERSONAL BELONGINGS RETURNED. PT ALERT AND ORIENTED X2 ABLE TO FUNCTION INDEPENDANTLY
== END 2022-01-24 10:15 | disposition home or self-care (01) | DRG 195 ==
LOC: ED 02:05 → MS 03:40
PROVIDERS: ADMIT Internal Medicine; ATTEND Internal Medicine
DX: J10.1 Influenza due to other identified influenza virus with other respiratory manifestations (principal); Z20.822 Contact with and (suspected) exposure to COVID-19; J44.9 Chronic obstructive pulmonary disease, unspecified; I11.0 Hypertensive heart disease with heart failure; I50.9 Heart failure, unspecified; I48.91 Unspecified atrial fibrillation; I73.9 Peripheral vascular disease, unspecified; Z87.891 Personal history of nicotine dependence; Z99.81 Dependence on supplemental oxygen; Z98.41 Cataract extraction status, right eye; Z98.42 Cataract extraction status, left eye; Z90.49 Acquired absence of other specified parts of digestive tract; Z90.89 Acquired absence of other organs; Z98.890 Other specified postprocedural states; Z88.8 Allergy status to other drugs, medicaments and biological substances; Z79.899 Other long term (current) drug therapy
CPT/HCPCS: 36415; 71045; 71046; 80053; 82803; 83735; 83880; 85025; 87502; 93005; 93010; 94640; 94760; 94762; A9270; C9803; J1940; J2920; J2930; U0003